=== PATIENT | male | born 1955 | race Caucasian/White ===

== ENCOUNTER 2022-03-30 07:28 | Outpatient (CLI) | payer MEDICARE, BC, SELFPAY ==
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
--- OUTSIDE RECORDS SUMMARY | 2022-03-30 07:30 | XMS_ITS | Encounter Summary ---
:1955 Author Organization [employer] Address [address], [place] [address] Care Team Providers Name Role Phone Unavailable Primary Care Provider Unavailable Reason for Visit Reason Comments CONSULT Bilat Ring Fingers Encounter Details Date Type Department Care Team Description 07/13/2021 [facility] Visit [facility] Luther contracture (Primary Medicine [address] [facility]) [address] [facility] [address] [place], [place] [id number] [phone] Social History Tobacco Use Types Packs/Day Years Used Date Smoking Tobacco: Never Assessed Sex Assigned at Date Recorded Not on file documented as of this encounter Progress Notes Juan Manzano MD - 07/13/2021 9:20 AM CDT Jonathan Alva [id number] 1955 Date of Visit: 07/13/21 Orthopedic Hand and Upper Extremity Consultation Chief Complaint: Bilateral hand contractures History of Present Illness: Jonathan Alva is a 66 y.o. male who presents for evaluation of his hands. He states that over theyears he has had continued development of contractures and cords within his hand. He would like to discuss this today formally. In addition he reports the occasional catching and locking of his index finger. He denies any pain with these problems. His contractures currently do not limit him functionally. Hedenies any particular injury. He has not had any formal treatments in the past for Dupuytren's. Occupation/Hobbies: Patient is retired. He is a nonsmoker. Past Medical/Surgical History: Past medical, social, family history, medications, and allergies were personally reviewed and as perthe intake form. Physical Exam: GENERAL: This is a very pleasant 66 y.o. y/o male in no apparent distress. Mood and affect is normal. Alert and oriented x3. PULMONARY: non-labored breathing, symmetrical chest rise, room oxygen CARDIAC: Distal perfusion to the upper extremities is intact, normal rate MUSCULOSKELETAL: Hand/Palm: Insp/Palp: Right hand there is evidence of pretendinous cords and nodular formation within the righthand involving the ring and middle fingers. Right Middle finger: Insp/Palp: There is a pretendinous cord leading to the middle finger causing a 15 degree flexion contracture at the MCP joint and a 5 degree flexion contracture at the PIP joint. Right Ring finger: Insp/Palp: There is a large pre tenderness cord leading to the ring finger creating a 20 degree MCPcontracture and a 10 degree PIP contracture. There are large nodular formations overlying the P1 phalangeal segment as well as the A1 derrick region. Left Ring Finger: There is a pre-tendinous cord involvement leading to the ring finger with no flexion contractures of the MCP or PIP joint. Skin: Skin warm and dry with no evidence of unusual rashes or suspicious lesions other than the dupuytren's description as noted above Neuro: Neurovascularly intact at the affected site. Psych: Mood and affect is normal. Cognition: Alert and oriented x3. Memory is intact. Assessment: Diagnosis and Associated Orders ICD-10-CM 1. Dupuytren's contracture M72.0 Plan: I informed the patient their dong fascia thickening is due to a genetic disease called Dupuytren'sdisease. We discussed at length both dong fasciotomy and non-surgical treatment options with Xiaflex including the risks and benefits for these treatments. Because their symptoms are not that severe, I would recommend avoiding any treatment at this time. Irecommended continued observation. The patient was instructed to closely monitor their finger motionand contact the office if unable to place their hand flat on a table. The patient understands and is content knowing their diagnosis and plan. He will plan to follow up with me next fall to reexamine his hands and consider surgical intervention if there has been any progression of his contracture. documented in this encounter Plan of Treatment Not on filedocumented as of this encounter Visit Diagnoses Diagnosis Dupuytren's contracture - Primary Contracture of palmar fascia documented in this encounter
--- OUTSIDE RECORDS SUMMARY | 2022-03-30 07:30 | XMS_ITS | Encounter Summary ---
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
--- OUTSIDE RECORDS SUMMARY | 2022-03-30 07:30 | XMS_ITS | Clinical Summary ---
:1955 [facility] Address [address], [place] [address] Care Team Providers Name Role Phone Unavailable Primary Care Provider Unavailable Source Comments You are receiving this document as you are listed as the primary care provider,follow-up provider, or the patient has been referred to you for consultation.This is in compliance with the Medicare and Medicaid EHR Incentive Program,which states Providers who transition their patient to another setting of careor provider of care or refers their patient to another provider of care shouldprovide summarycare record for each transition of care or referral. [employer] Allergies Active Allergy Reactions Severity Noted Date Comments Niacin Other, see comments 07/13/2021 Becomes flush, with heat around the neck . Medications Medication Sig Dispensed Refills Start Date End Date Status ELIQUIS 5 MG tablet Take 5 mg by 0 06/10/2021 Active mouth two times a day. atorvastatin (LIPITOR) Take 80 mg by 0 05/14/2021 Active 80 MG tablet mouth daily. carvedilol (COREG) 3.125 Take 3.125 mg by 0 06/16/19 22 Active MG tablet mouth two times a day. ezetimibe (ZETIA) 10 MG Take 10 mg by 0 05/11/2021 Active tablet mouth daily. omeprazole (PRILOSEC) 20 Take 20 mg by 0 05/17/2021 Active MG capsule mouth daily. lisinopril (ZESTRIL) 30 Take 30 mg by 0 05/08/2021 Active MG tablet mouth daily. tamsulosin (FLOMAX) 0.4 Take 0.8 mg by 0 06/28/2021 Active MG CAPS capsule mouth daily. cetirizine (ZYRTEC) 5 MG Take 5 mg by 0 Active tablet mouth two times a day. Ketotifen Fumarate 1 Drop two times 0 Active (ZADITOR) 0.025 % eye a day. drop solution Active Problems No known active problems Social History Tobacco Use Types Packs/Day Years Used Date Smoking Tobacco: Never Assessed Sex Assigned at Date Recorded Not on file Plan of Treatment Health Maintenance Due Date Last Done Comments Colon Cancer Screening Plan 1955 Due Hep C Screening (Preventive 1955 Services) Medicare Welcome Visit 1955 PSA Screening Discussion 1955 COVID-19 Vaccine (#1) 1955 Cholesterol 1990 Pneumococcal 65+ Yrs (2 - 04/05/2007 04/05/2006 PCV) Influenza (#1) 2021 02/03/2021, 02/17/2020, 02/21/2019, Additional history exists DTaP/Tdap/Td (3 - Tdap) 10/04/2026 10/04/2016, 08/29/2006 Zoster/Shingles Completed 06/19/2019, 02/21/2019 HepA Aged Out No longer eligib le based on patient 's age to complete this topic HepB Aged Out No longer eligib le based on patient 's age to complete this topic Hib Aged Out No longer eligib le based on patient 's age to complete this topic IPV (Polio) Aged Out No longer eligib le based on patient 's age to complete this topic MCV4 Aged Out No longer eligib le based on patient 's age to complete this topic Insurance Payer Benefit Plan / Subscriber ID Effective Dates Phone Addre ss Type Group MEDICARE MEDICARE [id number] 2021-Presen [phone] [facility] MANAGED CARE t 65 BCBS BCBS BC[employer] [place] [id number] 2021-Presen [phone] [address] [address] Medicare BLUE t [address] [place] [address]
[2022-03-30 11:15] LABS: Albumin* 4.1 g/dL (3.3-5.0); Chloride* 107 mmol/L (96-114); Potassium* 4.1 mmol/L (3.6-5.1); Sodium* 143 mmol/L (135-149)
[2022-03-30 11:17] LABS: Cholesterol* 182 mg/dL (90-199)
[2022-03-30 11:18] LABS: Alanine Aminotransferase* 53 U/L (4-50); Alkaline Phosphatase* 68 U/L (40-150); Aspartate Amino Transferase* 35 U/L (12-35); Bilirubin Total* 0.6 mg/dL (0.1-1.5); Blood Urea Nitrogen* 18 mg/dL (7-30); Calcium* 9.1 mg/dL (8.4-10.6); Carbon Dioxide* 30 mmol/L (20-32); Estimated Glomerular Filt Rate 82 ml/min; Glucose* 97 mg/dL (60-115); HDL Cholesterol* 36 mg/dL (>=40); LDL Cholesterol Calculated 127 mg/dL (<100); Total Protein* 6.6 g/dL (6.0-8.3); Triglycerides* 97 mg/dL (40-149)
[2022-03-30 11:45] LABS: PSA Screen* 3.97 ng/mL (0.10-4.00)
== END 2022-03-30 07:29 | disposition home or self-care (01) ==
LOC: NFLDREF 07:29
PROVIDERS: PCP Internal Medicine; Visit Provider Internal Medicine
DX: Z00.00 Encounter for general adult medical examination without abnormal findings (principal); E78.2 Mixed hyperlipidemia; N40.0 Benign prostatic hyperplasia without lower urinary tract symptoms; I10 Essential (primary) hypertension; I48.91 Unspecified atrial fibrillation; Z12.5 Encounter for screening for malignant neoplasm of prostate
CPT/HCPCS: 80053; 80061; 84153

== ENCOUNTER 2022-04-12 08:10 | Outpatient (CLI) | payer MEDICARE, BC, SELFPAY ==
--- NOTE | 2022-04-12 10:40 | W.ANESCHARGE ---
Anesthesia Charges Start Date/Time Anesthesia Start Date: 04/12/22 Anesthesia Start Time: 09:16 Stop Date/Time Anesthesia Stop Date: 04/12/22 Anesthesia Stop Time: 09:44 Summary Emergency: No
--- NOTE | 2022-04-12 10:59 | W.ANESCHARGE ---
Anesthesia Charges Start Date/Time Anesthesia Start Date: 04/12/22 Anesthesia Start Time: 09:16 Stop Date/Time Anesthesia Stop Date: 04/12/22 Anesthesia Stop Time: 09:44 Summary Emergency: No
== END 2022-04-12 08:11 | disposition home or self-care (01) ==
LOC: OP CLINIC 08:13
PROVIDERS: PCP Internal Medicine; Visit Provider Surgery
DX: Z12.11 Encounter for screening for malignant neoplasm of colon (principal); K63.5 Polyp of colon; K62.89 Other specified diseases of anus and rectum; Z85.038 Personal history of other malignant neoplasm of large intestine; Z86.010 Personal history of colon polyps
CPT/HCPCS: 00811; 45385; 88305; J1200; J2704

== ENCOUNTER 2023-01-04 07:54 | Outpatient (CLI) | payer OTHER, SELFPAY | END 2023-01-04 07:55 | disposition home or self-care (01) | LOC: RAD 07:54 | PROVIDERS: PCP Internal Medicine; Visit Provider Internal Medicine Cardiovascular Disease | DX: I34.0 Nonrheumatic mitral (valve) insufficiency (principal); I51.7 Cardiomegaly | CPT/HCPCS: 93306 ==

== ENCOUNTER 2023-03-04 10:32 | Outpatient (REF) | payer OTHER, SELFPAY ==
[2023-03-04 12:43] LABS: Aspartate Amino Transferase* 35 U/L (12-35); Cholesterol* 75 mg/dL (90-199); Creatine Kinase* 241 U/L (54-186); Triglycerides* 52 mg/dL (40-149)
[2023-03-04 12:44] LABS: Alanine Aminotransferase* 36 U/L (4-50); HDL Cholesterol* 35 mg/dL (>=40); LDL Cholesterol Calculated 30 mg/dL (<100)
== END 2023-03-04 10:33 | disposition home or self-care (01) ==
LOC: NPINS 10:32
PROVIDERS: PCP Internal Medicine; Visit Provider Internal Medicine
DX: I10 Essential (primary) hypertension (principal); E78.2 Mixed hyperlipidemia; N52.9 Male erectile dysfunction, unspecified
CPT/HCPCS: 80061; 82550; 84450; 84460

== ENCOUNTER 2023-03-04 10:32 | Outpatient (REF) | payer OTHER, SELFPAY ==
[2023-03-06 12:52] LABS: Testosterone, Adult Male 489 ng/dL (300-720)
== END 2023-03-04 10:33 | disposition home or self-care (01) ==
LOC: NPINS 10:32
PROVIDERS: PCP Internal Medicine; Visit Provider Urology
DX: N52.9 Male erectile dysfunction, unspecified (principal)
CPT/HCPCS: 84403

== ENCOUNTER 2023-06-06 06:15 | Day surgery (SDC) | payer OTHER, SELFPAY ==
[2023-06-06] VITALS (14 sets, daily range): BP systolic 121–140; BP diastolic 66–78; PULSE 54–64; RESP 10–16; TEMP 36.2–37; O2SAT 94–99; BMI 27.1
--- OUTSIDE RECORDS SUMMARY | 2023-06-06 06:17 | XMS_ITS | Clinical Summary ---
Author Name Unknown [facility] Address [address], [place] [address] Care Team Providers Care Station Repairer Name Role Phone Unavailable Primary Care Provider Unavailabl e Source Comments You are receiving this document as you are listed as the primary care provider,follow-up provider, or the patient has been referred to you for consultation.This is in compliance with the Medicare andMedicaid EHR Incentive Program,which states Providers who transition their patient to another setting of careor provider of care or refers their patient to another provider of care shouldprovide summary care record for each transition of care or referral. [facility] Allergies Active Allergy Reactions Criticality Noted Date Comments Niacin Other, see comments 07/13/2021 Becomes flush, with heat around the neck. Medications Medication Sig Dispensed Refills Start Date End Date Status ELIQUIS 5 MG tablet Take 5 mg by mouth two times a day. 06/10/2021 Active atorvastatin (LIPITOR) 80 MG tablet Take 80 mg by mouth daily. 05/14/2021 Active carvedilol (COREG) 3.125 MG tablet Take 3.125 mg by mouth two times a day. 06/16/2021 Active ezetimibe (ZETIA) 10 MG tablet Take 10 mg by mouth daily. 05/11/2021 Active omeprazole (PRILOSEC) 20 MG capsule Take 20 mg by mouth daily. 05/17/2021 Active lisinopril (ZESTRIL) 30 MG tablet Take 30 mg by mouth daily. 05/08/2021 Active tamsulosin (FLOMAX) 0.4 MG CAPS capsule Take 0.8 mg by mouth daily. 06/28/2021 Active cetirizine (ZYRTEC) 5 MG tablet Take 5 mg by mouth two times a day. Active Ketotifen Fumarate (ZADITOR) 0.025 % eye drop solution 1 Drop two times a day. Active Active Problems No known active problems Social History Tobacco Use Types Packs/Day Years Used Date Smoking Tobacco: Never Assessed Sex and Gender Information Value Date Recorded Sex Assigned at Not on file Gender Identity Not on file Sexual Orientation Not on file Plan of Treatment Health Maintenance Due Date Last Done Comments Colon Cancer Screening Plan Due 1955 Hep C Screening (Preventive Services) 1955 Medicare Annual Wellness Visit 1955 PSA Screening Discussion 1955 Cholesterol 1990 Pneumococcal 65+ Yrs (2 - PCV) 02/29/2020 04/05/2006 COVID-19 Vaccine (2 - season) 2022 02/03/2021 Influenza (#1) 2022 02/03/2021, 01/21, 02/21/2019, Additional history exists DTaP/Tdap/Td (3 - Tdap) 10/04/2026 10/04/2016, 08/29 Zoster/Shingles Completed 06/19/2019, 02/21/2019 HepA Aged Out No longer eligi ble based on patient's age to complete this topic HepB Aged Out No longer eligi ble based on patient's age to complete this topic Hib Aged Out No longer eligi ble based on patient's age to complete this topic IPV (Polio) Aged Out No longer eligi ble based on patient's age to complete this topic MCV4 Aged Out No longer eligi ble based on patient's age to complete this topic
--- OUTSIDE RECORDS SUMMARY | 2023-06-06 06:18 | XMS_ITS | Data Portability ---
Author Name Unknown Address [address] [place] [address] Phone [phone] Organization [facility] Address [address] [place] [address] Care Team Providers Care Stevedore Dock Name Role Phone ALHAJI LEVI Primary Care Provider [phone] Assessment No assessment recorded. Plan of Treatment Reminders Order Date Submit Date Provider Last Modified By Organization Details Last Modified Time Details Appointments ESTABLISH ED 10 2023 11:20A Matthew Nicole MD Not available Not available Not available Lab testoster one, total, serum 2022 023 [email or web address] Alhaji Levi MD, [address] [place], [address], 01/24/2023 17:37:21 PSA, serum or plasma 2022 023 [email or web address] 0 [facility], [address], [place], [address], 01/16/2023 16:18:19 PSA, total, serum or plasma 2022 023 [email or web address] [facility], [address], [place], [address], 01/24/2023 17:29:28 urinalysi s, dipstick 2022 023 [facility], [address] [place], [address], 10/10/2022 15:09:00 Referral None recorded. Procedures None recorded. Surgeries None recorded. Imaging None recorded. Medication Orders sildenafi l 100 mg tablet 2022 023 [id number], [address], [place], [address], 01/16/2023 16:43:15 Gemtesa 75 mg tablet 2022 023 [email or web address] 0 Not available 01/16/2023 16:43:12 oxybutyni n chloride ER 5 mg tablet,ex tended release 24 hr 2022 023 [email or web address] 0 [facility], [address] [place] [address], [place], [address], 01/16/2023 16:29:48 Patient TargetsNo targets recorded. Patient InstructionsNo instructions recorded. Reason for Referral None Reported. Results Created Date Observation Date Name Description Value Unit Range Abnormal Flag LastModifiedBy Organization Detail LastModifiedTime 10/11/1910/10/2022 urina lysis , dipst ick Color-Status Yellow Not Available [facility] [address], [place], [address], 10/10/2022 15:08:32 10/11/19 23 10/10/2022 urina lysis , dipst ick Clarity-Stat us Clear Not Available [facility] [address], [place], [address], 10/10/2022 15:08:32 10/11/19 23 10/10/2022 urina lysis , dipst ick Nitrates-Sta tus negati ve Not Available [facility] [address], [place], [address], 10/10/2022 15:08:32 10/11/19 23 10/10/2022 urina lysis , dipst ick Blood-Status Negati ve Not Available [facility] [address], [place], [address], 10/10/2022 15:08:32 10/11/19 23 10/10/2022 urina lysis , dipst ick Leuko-Status Negati ve Not Available [facility] [address], [place], [address], 10/10/2022 15:08:32 01/17/20 23 01/16/2023 PSA, serum or plasm a PSA 3.2ng/ mL 0-4.0 Not Available [facility] [address], [place], [address], 01/16/2023 16:18:05 Result Notes None recorded. Procedures Surgical History Date Name Laterality Status Provider Name and Address Organization Details Recorded Time 3 Bladder Scan completed Trisha perez [facility] 01/16/2023 16:17:59 3 Blood Draw/FARMWORKER/PSA RESULTS completed Trisha perez [facility] 01/16/2023 16:17:55 3 Bladder Scan completed KRISTINA TURPIN [address], [address], [facility] 10/10/2022 15:06:13 2 Colonoscopy completed KRISTINA TURPIN [address], [address], [facility] 10/10/2022 15:07:22 Imaging Results None recorded. Procedure Notes None recorded. Medical Equipment None Reported. Allergies Allergen ID Allergen Name Allergen Category Reaction Reaction Severity Criticality Documentation Date Start Date Code Code System Note Provider Name and Address Organization Details Recorded Time [id number] niacin medicatio n Not available Not available Not available 10/10/2022 7393 RxNorm KRISTINA TURPIN [address] [place] [address], [address], [facility] 3 15:05:11 Medications Name Sig Start Date Stop Date Status Note LastModified by Organization Details LastModified Time atorvastati n 80 mg tablet active Not Available Not Available Not Available amlodipine 5 mg tablet TAKE 1 TABLET BY MOUTH EVERY DAY active Not Available Not Available No t Available sildenafil 100 mg tablet Take 1 tablet as needed by oral route. 2022 active Not Available Not Available Not Avai lable carvedilol 3.125 mg tablet TAKE 1 TABLET BY MOUTH IN THE MORNING AND 1 TABLET IN THE EVENING. TAKE WITH MEALS. active Not Available Not Available No t Available tamsulosin 0.4 mg capsule TAKE 1 CAPSULE BY MOUTH EVERY DAY active Not Available Not Available No t Available hydrochloro thiazide 12.5 mg capsule active Not Available Not Available Not Available lisinopril 30 mg tablet active Not Available Not Available Not Available oxybutynin chloride ER 5 mg tablet,exte nded release 24 hr Take 1 tablet every day by oral route. 01/16 completed Not Available Not Available Not Available omeprazole 20 mg capsule,del ayed release TAKE 1 CAPSULE BY MOUTH EVERY DAY active Not Available Not Available No t Available metoprolol succinate ER 25 mg tablet,exte nded release 24 hr 10/10 completed Not Available Not Available Not Available amoxicillin 875 mg-potassiu m clavulanate 125 mg tablet TAKE 1 TABLET BY MOUTH TWICE A DAY FOR 5 DAYS 10/10 completed Not Available Not Available Not Available ezetimibe 10 mg tablet active Not Available Not Available Not Available Allergy Relief-D (cetirizine ) 5 mg-120 mg tablet,exte nded release TAKE 1 TABLET BY MOUTH TWICE A DAY 10/10 completed Not Available Not Available Not Available Myrbetriq 50 mg tablet,exte nded release TAKE 1 TABLET EVERY DAY 2023 active Not Available Not Available Not Avai lable Eliquis 5 mg tablet TAKE 1 TABLET BY MOUTH TWICE A DAY FOR ATRIAL FIBRILLAT ION. active Not Available Not Available No t Available Repatha SureClick 140 mg/mL subcutaneou s pen injector INJECT 1 ML UNDER SKIN EVERY 2 WEEKS INTO ABDOMEN, THIGH, OR UPPER ARM ROTATE INJECTION SITES. active Not Available Not Available No t Available Gemtesa 75 mg tablet active Not Available Not Available No t Available Vitals Date Recorded Body height Body mass index (BMI) Body weight Provider Name and Address Organization Details Last Updated DateTime 10/10/2022 182.88 cm 27.1 kg/m2 15922.47 g [facility] [address] [place] [address],[address], [phone] [place] [address] 10/10/2022 15:04:54 Date Recorded Body height Body mass index (BMI) Body weight Provider Name and Address Organization Details Last Updated DateTime 01/16/2023 182.88 cm 27.1 kg/m2 80843.47 g Trisha perez [facility] 01/16/2023 16:16:23 Social History Question Answer Notes LastModified by Organizat ion Details LastModified Time Tobacco Smoking Status Never Smoker KRISTINA TURPIN[address], [address] 10/10/2022 15:06:54 What Is Your Level Of Alcohol Consumption? Occasional Information not available 10/10/2022 How Many Times Per Week Do You Consume Alcohol? 1-2 Times Per Week Information not available 10/10/2022 What Is Your Level Of Caffeine Consumption? Moderate Information not available 10/10/2022 What Was The Date Of Your Most Recent Tobacco Screening? 01/16/2023 [email or web address] Information not available 01/16/2023 Do You Use Any Illicit Or Recreational Drugs? No Information not available 10/10/2022 Sex: Male Functional Status None recorded. Mental Status None recorded. Family History Relationship Description Onset Age of this Age Resolved Age Notes Unspecified Relation Family history of Hypertension Unspecified Relation Family history of cardiac disorder Medical History Condition Response GERD/Acid Reflux Y Heart Disease Y High Blood Pressure Y High Cholesterol Y Immunizations Vaccine Type Date Status Provider Name and Address Organization Details Recorded Time Influenza, injectable, MDCK, quadrivalent, preservative 02/17/[address] [facility] 01/16/2023 16:16:27 zoster recombinant 06/19/2019 allison perez [facility] 01/16/2023 16:16:27 zoster recombinant 02/21/2019 allison perez [facility] 01/16/2023 16:16:27 influenza, high-dose, quadrivalent 01/25/2022 completed Trisha Sauceda null, [facility] 01/16/2023 16:16:27 influenza, high-dose, quadrivalent 02/03/2021 completed Trisha Sauceda null, [facility] 01/16/2023 16:16:27 COVID-19, mRNA, LNP-S, PF, 30 mcg/0.3 mL dose 02/03/2021 completed Trisha Sauceda null, [facility] 01/16/2023 16:16:27 Pneumococcal conjugate PCV20, polysaccharide [id number] conjugate, adjuvant, PF 01/25/2022 completed Trisha Sauceda null, [facility] 01/16/2023 16:16:27 pneumococcal polysaccharide PPV23 04/05/2006 completed Trisha Sauceda null, [facility] 01/16/2023 16:16:27 Influenza, seasonal, injectable 01/14/2009 completed Trisha Sauceda null, [facility] 01/16/2023 16:16:27 Influenza, seasonal, injectable 01/15/2012 completed Trisha Sauceda null, [facility] 01/16/2023 16:16:27 Influenza, seasonal, injectable 01/30/2013 completed Trisha Sauceda null, [facility] 01/16/2023 16:16:27 Influenza, seasonal, injectable 02/22/2010 completed Trisha Sauceda null, [facility] 01/16/2023 16:16:27 Influenza, seasonal, injectable 03/01/2005 [facility], [facility] 01/16/2023 16:16:27 Influenza, seasonal, injectable 03/09/2008 completed Trisha Sauceda null, [facility] 01/16/2023 16:16:27 Influenza, seasonal, injectable 03/19/2007 completed Trisha Sauceda null, [facility] 01/16/2023 16:16:27 Influenza, seasonal, injectable 03/31/2003 completed Trisha Sauceda null, [facility] 01/16/2023 16:16:27 Influenza, seasonal, injectable 04/05/2006 completed Trisha perez [facility] 01/16/2023 16:16:27 Influenza, seasonal, injectable, preservative free 02/13/2011 [facility] 16:16:27 Td (adult), 2 Lf tetanus toxoid, preservative free, adsorbed 10/04/2016 [facility]16[facility]23 16:16:27 [facility] 08/29/2006 [facility] 16:16:27 influenza, injectable, quadrivalent, preservative free 01/20/2014 [facility]23 16:16:27 influenza, injectable, quadrivalent, preservative free 02/21/2019 [facility]23 16:16:27 influenza, injectable, quadrivalent, preservative free 03/09/2016 [facility]16/2023 16:16:27 influenza, injectable, quadrivalent, preservative free 03/15/2017 [facility]/16/2023 16:16:28 influenza, injectable, quadrivalent, preservative free 03/19/2018 [facility] 16:16:28 Past Encounters Encounter ID Performer Location Encounter Start Date Encounter Closed Date Diagnosis/Indication [id number] MD KENNEY [facility] [address] [place] [address] 10/10/2022 14:44:45 10/18/2022 10:45:13 Urgent desire to urinate Lower urinary tract symptoms due to benign prostatic hypertrophy [id number] MD KENNEY [facility] [address] [place] [address] 01/16/2023 15:53:16 01/28/2023 14:16:56 Urgent desire to urinate Lower urinary tract symptoms due to benign prostatic hypertrophy Primary erectile dysfunction Health Concerns Section Related Observation LastModified by Organization Detai ls LastModified Time None Recorded Concern Status LastModified by Organization Details LastModified Time None Recorded Advance Directives Directive None Recorded Payers Encounter Date Sequence Insurance Name Policy Number Policy Nixon Covered Member ID Nixon Member ID Guarantor Name 01/16/2023 1 [facility] Jonathan Alva [id number] Jonathan Alva 01/16/2023 2 [place]: [employer] Jonathan Alva [id number] Jonathan Alva 10/10/2022 1 [facility] Jonathan Alva [id number] Jonathan Alva 10/10/2022 2 MEDICARE BMN: [employer] [facility] Jonathan Alva [id number] Jonathan Huff Nida Notes Date Note Type Note Provider Name and Address Organization Details Recorded Time 10/10/2022 text/html HPI Notes: 67 yo male with history of colon cancer (carcinoid), A.fib (on Eliquis), HTN, hyperlipidemia, GERD, CONOR (on CPAP), and BPH - presents with a 6-12 month history of urinary frequency and urgency. He voids every 1-3 hours during the day and 0-3x/night. He notes urgency with occasional leakage - denies hesitancy or dysuria. He is on Flomax 0.8 mg daily. 10/10/22 - He presents for follow-up on urination. He voids every 2-3 hours during the day and 0-4x/night. He notes urgency (occasional leakage) - denies dysuria. - UA - no blood - no LE - PVR = 4 mL PSA - 1.58 (03/31/09) - 1.66 (04/02/15) - 1.72 (03/09/16) - 1.72 (10/22/17) - 2.67 (09/01/20) Christopher Nicole MD [address] [place] [address],[facility] [address], [place], [address], [facility] 10/11/2022 23:54:14 01/16/2023 text/html HPI Notes: 67 yo male with history of colon cancer (carcinoid), A.fib (on Eliquis), HTN, hyperlipidemia, GERD, CONOR (on CPAP), and BPH - presents with a 6-12 month history of urinary frequency and urgency. No Family Hx of prostate cancer. He voids every 1-3 hours during the day and 0-3x/night. He notes urgency with occasional leakage - denies hesitancy or dysuria. He is on Flomax 0.8 mg daily and Oxybutynin ER 5 mg daily. 10/10/22 - He presents for follow-up on urination. He voids every 2-3 hours during the day and 0-4x/night. He notes urgency (occasional leakage) - denies dysuria. 01/16/23 - He presents for follow-up on PSA and urination. He reports no change with Oxybutynin. He voids every 2-3 hours during the day and 3-5x/night. He reports trouble with erections for the past 1-2 years - difficulty obtaining and maintaining erections - no morning erections - + low libido. He also notes Left groin bulge over the past couple weeks. - PVR = 21mL - PSA - 3.2 PSA - 1.58 (03/31/09) - 1.66 (04/02/15) - 1.72 (03/09/16) - 1.72 (10/22/17) - 2.67 (09/01/20) - 3.2 (01/16/23) Christopher Nicole MD [address] [place] [address],[address], [place], [address], [place] MD - [facility] 01/17/2023 21:42:19
--- OUTSIDE RECORDS SUMMARY | 2023-06-06 06:18 | XMS_ITS | Clinical Summary ---
Author Name Unknown Organization [facility] Address [place], [place] [address] Care Team Providers Care Sleeve Setter Lockstitch Name Role Phone Alhaji Cody MD Primary Care Provider Allergies Active Allergy Reactions Criticality Noted Date Comments Niacin Flushing 09/05/2006 intolerance Medications Medication Sig Dispensed Refills Start Date End Date Status Acetaminophen (TYLENOL) 650 mg tabletIndications:P reoperative examination, unspecified Take 1 tablet by mouth every 6 hours if needed. Max acetaminophen dose: 4000mg in 24 hrs. 0 03/25/2012 Active atorvastatin (LIPITOR) 80 mg tabletIndications:M ixed hyperlipidemia TAKE 1 TABLET DAILY 90 tablet 0 05/22/2018 Active ezetimibe (ZETIA) 10 mg tabletIndications:M ixed hyperlipidemia TAKE 1 TABLET DAILY 90 tablet 0 05/22/2018 Active omeprazole (PRILOSEC) 20 mg Delayed-Release capsuleIndications: Chronic GERD Take 1 capsule by mouth once daily if needed. 90 capsule 3 06/08/2019 Active lisinopril (PRINIVIL; ZESTRIL) 30 mg tabletIndications:H ypertensive heart disease, unspecified whether heart failure present Take 1 tablet by mouth once daily. 90 tablet 3 06/25/2019 Active Eliquis 5 mg tablet Take 1 Tablet (5 mg) by mouth 2 times daily. 0 09/08/2020 Active carvediloL (Coreg) 3.125 mg tabletIndications:H ypertensive heart disease, unspecified whether heart failure present Take 1 Tablet (3.125 mg) by mouth in the morning and 1 Tablet (3.125 mg) in the evening. Take with meals. 180 Tablet 0 12/08/2021 Active carvediloL (COREG) 3.125 mg tabletIndications:H ypertensive heart disease, unspecified whether heart failure present Take 1 Tablet (3.125 mg) by mouth two times daily with meals. 180 Tablet 3 03/20/2022 Active tamsulosin (FLOMAX) 0.4 mg capsuleIndications: Benign prostatic hyperplasia with incomplete bladder emptying TAKE 2 CAPSULES ONCE DAILY AFTER A MEAL 180 Capsule 0 03/29/2022 Active CPAPIndications:Obs tructive sleep apnea CPAP machine for home use at pressure:8 cm/H2O, Heated humidifier x 1 every 5 years, Humidifier chamber x 1 every 6 months, Nasal mask with cushion x 1 every 3 months, Nasal mask cushion 1/ month, 1 headgear 1 every 6 month, standard tubing x 1 every 3 months, Filters: Disposable filter x 2 a month, non-disposable filters x1 every 6 months; chinstrap 1 every 6 months Length of Need: 99 months, Frequency of use: Daily 1 Each 11 11/19/2022 Active oxybutynin XL (DITROPAN XL) 5 mg CR tablet 0 10/10/2022 Active amLODIPine (NORVASC) 5 mg tabletIndications:H TN (hypertension) Take 1 Tablet (5 mg) by mouth once daily. 90 Tablet 3 12/06/2022 Active hydroCHLOROthiazide 12.5 mg capsuleIndications: HTN (hypertension) Take 1 Capsule (12.5 mg) by mouth every morning. 0 12/06/2022 Active evolocumab (Repatha SureTyick) 140 mg/mL subcutaneous pen injectorIndications :Hyperlipidemia, unspecified hyperlipidemia type INJECT 1 ML UNDER SKIN EVERY 2 WEEKS INTO ABDOMEN, THIGH, OR UPPER ARM ROTATE INJECTION SITES. 6 mL 3 03/04/2023 Active Active Problems Problem Noted Date Diagnosed Date PAF (paroxysmal atrial fibrillation) 12/07/2020 Hypertensive heart disease 06/19/2019 Chest pain 06/19/2019 Atrial flutter 06/19/2019 Sinus bradycardia 10/04/2016 BPH (benign prostatic hyperplasia) 03/07/2015 Sensorineural hearing loss, bilateral 04/03/2013 HTN (hypertension) 05/27/2012 Personal history of colonic polyps 05/20/2012 Overview: Colonoscopy 04/2012 normal repeat in 5 years Colonoscopy 03/2017 diverticulosis repeat in 5 years CONOR AHI-16 positional 10/17/2009 10/31/2009 GERD (gastroesophageal reflux disease) 0 Mixed hyperlipidemia 08/29/2006 Resolved Problems Problem Noted Date Diagnosed Date Resolved Date Elevated BP 03/25/2012 05/27/2012 Prostatism 06/26/2010 03/07/2015 Things taste abnormal 08/24/20092010 Halitosis 08/24/2009 03/31/2013 Encounters Date Type Department Care Team Description 03/06/2023 Orders Only [facility] at [address] [address] Maria A Lechuga MD 4 scans: (4-Ord) [facility] labs; 03.04.2023 from Last 3 Months Immunizations Name Administration Dates Next Due AMB Influenza, IIV3 (Age >=3 years)(Flu Clinic Only) 01/30/2013,03/09/2008 AMB Influenza, IIV4 PF (=>6 mos Flulaval,Fluzone Fluarix)(Flu Clinic Only) 02/09/2015,01/20/2014 COVID-19 vaccine ([employer] 30mcg/0.3mL) PF, MDV 07/19/2020,06/28/2020 DTaP 08/29/2006 Influenza, IIV3 (Age 6-35 mos) 02/13/2011 Influenza, IIV3 (Age >=3 years) 01/31/20 13,01/15/2012,02/13/2011,2009,01/14/2009,03/09/2008,03/19/2007,1 06/06/2005,02/20/2006,03/01/2005, 003 Influenza, IIV4 03/15/2017,03/09/2016,01/20/2014 Pneumococcal Poly,23-Valent (Pneumovax) 04/05/2006 Td (Age >=7 Years) 10/04/2016 Family History Medical History Relation Name Comments Hyperlipidemia Brother 1 Hypertension Brother 1 Cancer Brother 2 lymphoma-- at 15 Lymphoma Brother 2 Hyperlipidemia Brother 3 [...] Packs/Day Years Used Date Smoking Tobacco: Never Smokeless Tobacco: Never Tobacco Cessation:Counseling Given: Yes Alcohol Use Standard Drinks/Week Comments Yes 2 (1 standard drink = 0.6 oz pur e alcohol) occasional beer PHQ-2 Answer Date Recorded PHQ-2 Score 0 06/21/2018 Social Connections Answer Date Recorded Frequency of Communication with Friends and Fami ly Not on file 04/22/2021 Financial Resource Strain Answer Date R ecorded Difficulty of Paying Living Expenses Not on file 04/22/2021 Difficulty of Paying Living Expenses Not on file 04/22/2021 Sex and Gender Information Value Date Recorded Sex Assigned at Male 04/11/2020 7:56 PM [facility] Gender Identity Male 04/11/2020 7:56 PM 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 Sexual Orientation Straight 04/11/2020 7: 56 PM [facility] Obstetrics History Last Filed Vital Signs Vital Sign Reading Time Taken Comments Blood Pressure 161/81 12/06/2022 7:48 AM CDT Pulse 57 12/06/2022 7:48 AM CDT Temperature 36.2 ??C (97.1 ??F) 08/09/2022 8:38 AM CD T Respiratory Rate 16 08/09/2022 8:38 AM CDT Oxygen Saturation 96% 12/06/2022 7:48 AM CDT Inhaled Oxygen Concentration - - Weight 91.3 kg (201 lb 4.8 oz) 12/06/2022 7:48 A M CDT Height 182.9 cm (6') 12/06/2022 7:48 AM CDT Body Mass Index 27.3 12/06/2022 7:48 AM CDT Plan of Treatment Health Maintenance Due Date Last Done Comments Zoster (shingles) series for age 50+ (1 of 2) 2005 Depression screening for age 12+ 10/22/2018 10/22/2017, 10/22/2017, 08/04/2016, Additional history exists Medicare Wellness for age 65+ 02/29/2020 Pneumococcal series for age 65+ (2 of 2 - PCV) 02/29/2020 04/05/2006 Colonoscopy through age 75 04/11/202204/11, 04/11/2017, 04/11/2017, Additional history exists COVID-19 vaccine series ( season) 2022 02/03/2021, 07/19/2020, 06/28/2020 Influenza for age 65+ 12/21/2022 03/15/2017 , 03/09/2016, 02/09/2015, Additional history exists BMI (ht and wt on same day) for age 18+ 12/07/2023 12/06/2022, 11/19/2022, 11/08/2020, Additional history exists Tetanus booster 10/04/2026 10/04/2016, 07/21 (Completed outside of [facility]) Lipids for age 45-75 03/04/2028 03/04/2023, 10/22/2017, 03/09/2016, Additional history exists Tdap Completed 12/04/2006 (Comp leted outside of [facility]) Hepatitis C screening for ag e 18-79 Completed 03/03/2015 Advance Directives Latest Code Status on File Code Status Date Activated Date Inactivated Comments Full Code 12/07/2020 11:36 AM 12/07/2020 9:08 PM Question Answer Comments Code Status Discussion: Not Discussed Code Status History Code Status Date Activated Date Inactivated Comments Full Code 03/18/2012 11:54 AM 03/19/2012 2:26 AM Full Code 08/30/2006 7:51 PM 08/31/2006 5:09 PM Full Code 08/30/2006 11:10 AM 08/30/2006 7:51 PM Care Teams Sleeve Setter Lockstitch Relationship Specialty Start Date End Date Alhaji Cody MD [address] [place] [address] PCP - General Internal Medicine 06/08/19
[2023-06-06] MEDS: LACTATED RINGERS 1000 ML 1,000 ML 100 ML IV ×2 (06:20→09:30)
[2023-06-06] MEDS: SODIUM CHLORIDE 0.9 % (FLUSH) 10 ML SYRINGE IVF (06:57)
[2023-06-06] MEDS: CEFAZOLIN 2 GM INJ IVP (07:46)
[2023-06-06] MEDS: BUPIVACAINE 0.25% 30 ML INJECTION (08:50)
--- NOTE | 2023-06-06 09:18 | W.ANESCHARGE ---
Anesthesia Charges Start Date/Time Anesthesia Start Date: 06/06/23 Anesthesia Start Time: 07:36 Stop Date/Time Anesthesia Stop Date: 06/06/23 Anesthesia Stop Time: 09:11
--- NOTE | 2023-06-06 09:37 | PM.GSPRC ---
Operative Note Date of procedure: 06/06/23 Pre-op diagnosis: Left inguinal hernia Post-op diagnosis: Same Type of Procedure: Laparoscopic left inguinal hernia repair with mesh Indications: The patient is a 68-year-old male with an increasingly symptomatic left inguinal hernia. After discussion of options, he elected to proceed with repair. Procedure Description: After discussing the risks and benefits of the procedure, the patient signed informed consent.? The operative site was marked and the patient was brought to the operating room and placed on the operating table in supine position.? Care was taken to pad the patient's pressure points.?? The patient was then intubated by anesthesia.?? The operative site was then prepped and draped in the usual sterile fashion.? A time-out was then performed. A curvilinear incision was made below the umbilicus. Dissection was carried down to subcutaneous tissue until the anterior rectus fascia was encountered. This was incised off the midline on the left. The rectus muscle fibers were then retracted exposing the posterior fascia. A port with a dissecting balloon was then introduced into the pre-preperitoneal space. This was inflated under direct vision. The balloon was deflated, removed, and a 10 mm working port was placed. The space was insufflated and a 10 mm 30-degree scope was then advanced into the space. Two 5 mm ports were placed in the midline under direct vision. Dissection began on the left side. At this point, the patient became profoundly bradycardic. The abdomen was desufflated while anesthesia administered medication to improve the patient's heart rate. Once the patient's heart rate and blood pressure were stable, the abdomen was re-insufflated. Please see Anesthesia turning for details. Cecilio's ligament and the pubic bone were exposed medially. Following this, dissection was carried out laterally. An indirect defect was noted. The sac was dissected free from the cord structures using a combination of sharp and blunt dissection. A large cord lipoma was also reduced. Once the sac was completely reduced, a piece of Bard 3DMax mesh for the appropriate side was placed into the abdomen. This was positioned with the marker pointed medially. A Tacker was used to attach the mesh medially at Cecilio's ligament and 1 tack laterally with care to avoid the epigastric vessels and stay above the inguinal ligament. Once this was completed the sac was placed on top of the mesh and the preperitoneal space desufflated under direct vision to ensure the mesh laid flat. 10 mL of 0.5% Marcaine were instilled into the preperitoneal space through a port. The ports were removed. The fascia from the infraumbilical port was closed with 0 Vicryl. The patient had a small 5 mm umbilical hernia defect which was also closed with Vicryl suture. The skin incisions were closed with absorbable subcuticular suture. Sterile dressings were then applied. The scrotum was examined to ensure that both testicles were down. Instrument sponge and needle counts were correct at the end of the case. ? The patient was then woken and transported to the recovery area in stable condition. ? The patient tolerated the procedure well. Findings: Large indirect left inguinal hernia. Anesthesia: GETA Surgeon: Diandra Avalos MD Estimated blood loss (mL): 5 Condition: stable Disposition: PACU
--- NOTE | 2023-06-06 10:03 | W.ANESCHARGE ---
Anesthesia Charges Start Date/Time Anesthesia Start Date: 06/06/23 Anesthesia Start Time: 07:36 Stop Date/Time Anesthesia Stop Date: 06/06/23 Anesthesia Stop Time: 09:11
[2023-06-06] MEDS: ACETAMINOPHEN 325 MG TABLET 650 MG PO (10:36)
== END 2023-06-06 11:33 | disposition home or self-care (01) ==
PROVIDERS: PCP Internal Medicine; Visit Provider Surgery
PROC: (CPT 49650; principal; 2023-06-06 07:30)
DX: K40.90 Unilateral inguinal hernia, without obstruction or gangrene, not specified as recurrent (principal)
CPT/HCPCS: 49650; 00860; A9270; C1781; J0330; J0461; J0665; J0690; J1100; J1170; J2250; J2405; J2704; J3010; J3490; J7120

== ENCOUNTER 2024-01-20 12:01 | Outpatient (REF) | payer OTHER, SELFPAY ==
--- OUTSIDE RECORDS SUMMARY | 2024-01-20 12:05 | XMS_ITS | Clinical Summary ---
Author Organization [facility] Address [address] [address] Care Team Providers Care Reinsurance Analyst Name Role Phone Unavailable Primary Care Provider [...] for each transition of care or referral. [facility] Allerg[facility] Active Allergy Reactions Criticality Noted Date [...] 02/29/2020 04/05/2006 COVID-19 Vaccine (2 - season) 2023 02/03/2021 Influenza (#1) 2023 02/03/2021, 01/21, 02/21/2019, Additional history exists DTaP/Tdap/Td (3 - Tdap) 10/04/2026 10/04/2016, 08/29 RSV (1 - 1-dose 75+ series) 2030 Zoster/Shingles Completed 06/19/2019, 02/21/2019 HepA Aged Out [...]
--- OUTSIDE RECORDS SUMMARY | 2024-01-20 12:05 | XMS_ITS | Clinical Summary ---
Author Organization [facility] Address [place], [place] [address] Care Team Providers Care Grants Manager Name Role Phone Alhaji Cody MD Primary [...] hyperlipidemia TAKE 1 TABLET DAILY 90 tablet 05/22/2018 Active ezetimibe (ZETIA) 10 mg tabletIndications:M ixed hyperlipidemia TAKE 1 TABLET DAILY 90 tablet 05/22/2018 Active omeprazole (PRILOSEC) 20 mg Delayed-Release [...] the evening. Take with meals. 180 Tablet 12/08/2021 Active carvediloL (COREG) 3.125 mg tabletIndications:H ypertensive heart disease, unspecified whether heart failure present Take 1 Tablet (3.125 mg) by mouth two times daily with meals. 180 Tablet 3 03/20/2022 Active tamsulosin (FLOMAX) 0.4 mg capsuleIndications: Benign prostatic hyperplasia with incomplete bladder emptying TAKE 2 CAPSULES ONCE DAILY AFTER A MEAL 180 Capsule 03/29/2022 Active CPAPIndications:Obs tructive sleep apnea CPAP [...] XL (DITROPAN XL) 5 mg CR tablet 10/10/2022 Active hydroCHLOROthiazide 12.5 mg capsuleIndications: HTN (hypertension) Take 1 Capsule (12.5 mg) by mouth every morning. 0 12/06/2022 Active evolocumab (Repatha SureClick) 140 mg/mL subcutaneous pen injectorIndications :Hyperlipidemia, unspecified hyperlipidemia type INJECT 1 ML UNDER SKIN EVERY 2 WEEKS INTO ABDOMEN, THIGH, OR UPPER ARM ROTATE INJECTION SITES. 6 mL 3 03/04/2023 Active amLODIPine (NORVASC) 5 mg tabletIndications:H TN (hypertension) TAKE 1 TABLET BY MOUTH EVERY DAY 90 Tablet 12/12/2023 Active Active Problems Problem Noted Date Diagnosed Date PAF (paroxysmal atrial fibrillation) 12/07/2020 Hypertensive heart disease 06/19/2019 Chest pain 06/19/2019 Atrial flutter 06/19/2019 Sinus bradycardia 10/04/2016 BPH (benign prostatic hyperplasia) 03/07/2015 Sensorineural hearing loss, bilateral 04/03/2013 HTN (hypertension) 05/27/2012 Personal history of colonic polyps 05/20/2012 Overview (04/11/2017): Colonoscopy 04/2012 normal repeat in 5 years Colonoscopy 03/2017 diverticulosis repeat in 5 years [facility] AHI-16 positional 10/17/2009 10/31/2009 GERD (gastroesophageal reflux disease) 0 Mixed hyperlipidemia 08/29/2006 Resolved Problems Problem Noted Date Diagnosed Date Resolved Date Elevated BP 03/25/2012 05/27/2012 Prostatism 06/26/2010 03/07/2015 Things taste abnormal 08/24/20092010 Halitosis 08/24/2009 03/31/2013 Encounters Date Type Department Care Team Description 01/06/2024 10:00 AM CDT Ancillary Procedure [facility] [address] [place] [address] 01/06/2024 Travel 01/03/2024 Transcribe Orders [facility] [address] [facility] [place] [address] Alhaji Cody MD 12/12/2023 Refill [facility] [address] [place] [address] Sheron Rogers MD Refill Request (Amlodipine) 12/02/2023 Orders Only [facility] [place] [address] [place] [address] Sheron Rogers MD <No scans attached> from Last 3 Months Immunizations Name Administration Dates Next Due AMB Influenza, IIV3 (Age >=3 years)(Flu Clinic Only) 01/30/2013,03/09/2008 AMB Influenza, IIV4 PF (=>6 mos Flulaval,Fluzone Fluarix)(Flu Clinic Only) 02/09/2015,01/20/2014 COVID-19 vaccine (Tianji 30mcg/0.3mL) PF MDV 07/19/2020,06/28/2020 DTaP 08/29/2006 Influenza, IIV3 (Age [...] Sex Assigned at Male 04/11/2020 7:56 PM [employer] Gender Identity Male 04/11/2020 7:56 PM [employer] Sexual Orientation Straight 04/11/2020 7: 56 PM [employer] Obstetrics History Last Filed Vital Signs Vital [...] 12/06/2022 7:48 AM CDT Plan of Treatment Upcoming Encounters Date Type Department Care Team (Late st Contact Info) Description 01/21/2024 8:00 AM CDT Office Visit [facility] [address] [place] [address] Sheron Rogers MD [address] [place] [address] 04/30/2024 12:00 PM [employer]IN [employer]ER Office Visit [facility] [address] [place] [address] Arnoldo Douglass MD [address] [place] [address] Health Maintenance Due Date Last Done Comments Zoster (shingles) series for age 50+ (1 of 2) 2005 Depression screening for age 12+ 10/22/2018 10/22/2017, 10/22/2017, 08/04/2016, Additional history exists Medicare Wellness for age 65+ 02/29/2020 Pneumococcal series for age 65+ (2 of 2 - PCV) 02/29/2020 04/05/2006 Colonoscopy through age 75 04/11/202204/11, 04/11/2017, 04/11/2017, Additional history exists BMI (ht and wt on same day) for age 18+ 12/07/2023 12/06/2022, 11/19/2022, 11/08/2020, Additional history exists COVID-19 vaccine series ( season) 2023 02/03/2021, 07/19/2020, 06/28/2020 Influenza for age 65+ 12/22/2023 03/15/2017 , 03/09/2016, 02/09/2015, Additional history exists Tetanus booster 10/04/2026 10/04/2016, 07/21 (Completed outside of [facility]) Lipids for age 45-75 03/04/2028 03/04/2023, 10/22/2017, 03/09/2016, Additional history exists Tdap Completed 12/04/2006 (Comp leted outside of [facility]) Hepatitis C screening for ag e 18-79 Completed 03/03/2015 Procedures Procedure Name Priority Date/Time Associated Diagnosis Comments ECHO TTE COMPLETE WO CONTRAST Routine 01/06/2024 10:33 AM CDT ASHD (arteriosclerotic heart disease) H/O cardiac radiofrequency ablation PAF (paroxysmal atrial fibrillation) (HC) Mitral valve insufficiency, unspecified etiology LIPID PANEL Routine 03/04/2023 Mixed hyperlipidemia COLONOSCOPY 04/11/2017 9:31 AM [employer] ANTI HCV Routine 03/03/2015 7:22 AM [employer] Need for hepatitis C screening test from Last 3 Months or Most Recently Relevant to Health Maintenance Results * ECHO TTE COMPLETE WO CONTRAST (01/06/2024 10:33 AM CDT) AORTIC VALVE MEAN PG 6 mmHg EJECTION FRACTION 67 % LVEDD 4.6 cm EJECTION FRACTION 60 - 65% Anatomical Region Laterality Modality Ultrasound 01/06/2024 10:0 4 AM CDT Narrative 01/06/2024 10:47 AM CDT ECHOCARDIOGRAM RADHA ALVA ? Accession#: ?? [id number] : ?1955 68 years Study Date: ?? 01/06/2024 10:04:49 AM Gender: M ?BP: ? 133/60 mmHg Height: 183.00 cm ?BSA: ?2.13 m? ? ? Weight: 91.00 kg ? Tech: ? MHR ? Referring MD: SHERON ROGERS Site: ? [facility] Reading Location: MOBILE OP Patient Location: Outpatient. Procedure: 2D, Color Doppler and Spectral Doppler. Indication for study: ASHD Cardiac Rhythm: Regular.Study quality: Fair. Final Impressions: 1. Normal LV size, normal wall thickness, normal global systolic function with an estimated EF of 60 - 65%. 2. Right ventricular cavity size is normal, global systolic RV function is normal. 3. The mitral valve is normal, mild mitral regurgitation. Chamber Sizes and Function Normal left ventricular size, normal wall thickness, normal global systolic function with an estimated EF of 60 - 65%. Left atrial size is normal. Right ventricular cavity size is normal, global systolic RV function is normal. The right atrium is normal. Right atrial volume index is 15 ml/m? ? ?. Right atrial area is 15 cm? ? ?. The pulmonary artery is not well visualized. The sinus of Valsalva is normal sized. The ascending aorta is normal sized. Valves, RV Pressures and Diastolic Function The aortic valve is trileaflet and sclerotic, no stenosis and no regurgitation. The mitral valve is normal in structure, mild mitral regurgitation. Indeterminate pattern of LV diastolic filling. The tricuspid valve is normal in structure. Tricuspid regurgitation is trace regurgitation. Unable to assess right ventricular systolic pressure. The pulmonic valve is normal. Trace pulmonary regurgitation. Masses, Effusion, Shunts There is no pericardial effusion. The inferior vena cava is normal sized, respiratory size variation greater than 50%. No left to right shunting was detected by limited color flow Doppler interrogation of the interatrial septum. MEASUREMENTS AND CALCULATIONS 2-D Measurements and LV Function: LVID (d) ?4.6 cm LV FS% (2D) ?? 37 % LVID (s) ?2.9 cm LVOT diameter 2.0 cm IVS (d) ? 0.9 cm HR ?53 bpm LVPW (d) ?1.1 cm LA Vol index ??26 ml/m2 Ao Sinus ?3.3 cm RA Vol index ??15 ml/m2 Ao ST junct 2.5 cm RA area ? 15 cm? ? ? Asc Ao ?3.6 cm RV Max 4C (d) 2.6 cm LA ?4.6 cm Diastology: Mitral ?Tissue Doppler E Peak 0.7 m/s ??e', Septum ? 0.09 m/s A Peak 0.7 m/s ??e', Lateral ?0.08 m/s E/A ?1.0 ?E/e' Average ?? 7.98 DT ? 243 msec Aortic Valve: Vmax ? 1.5 m/s ??RAQUEL (V) ?? 2.45 cm? ? ? VTI ?0.36 m ?? RAQUEL (I) ?? 2.55 cm? ? ? LVOT V max 1.1 m/s ??Max PG ?9 mmHg LVOT VTI ?? 0.28 m ?? Mean PG ?? 6 mmHg SV ? 91 ml ?Dim Index 0.78 SV index ?? 43 ml/m? ? ? CO ?4.8 l/min ?CI ?2.3 l/min/m? ? ? Mitral Valve: MVA ?3.1 cm? ? ? MV P 1/2 70 msec Tricuspid Valve and estimated PA pressures: TAPSE 2.6 cm . This study was interpreted by an [facility] accredited facility. ??Final ?? Procedure Note Boyd Art MD - 01/06/2024 ECHOCARDIOGRAM RADHA ALVA : 1955 68 years Study Date: 01/06/2024 10:04:49 AM Gender: M BP: 133/60 mmHg Height: 183.00 cm BSA: 2.13 m? ? ? Weight: 91.00 kg Tech: R Referring MD: SHERON ROGERS Site: [facility] Reading Location: MOBILE OP Patient Location: Outpatient. Procedure: 2D, Color Doppler and Spectral Doppler. Indication for study: ASHD Cardiac Rhythm: Regular.Study quality: Fair. Final Impressions: 1. Normal LV size, normal wall thickness, normal global systolic functionwith an estimated EF of 60 - 65%. 2. Right ventricular cavity size is normal, global systolic RV functionis normal. 3. The mitral valve is normal, mild mitral regurgitation. Chamber Sizes and Function Normal left ventricular size, normal wall thickness, normal globalsystolic function with an estimated EF of 60 - 65%. Left atrial size isnormal. Right ventricular cavity size is normal, global systolic RVfunction is normal. The right atrium is normal. Right atrial volume indexis 15 ml/m? ? ?. Right atrial area is 15 cm? ? ?. The pulmonary artery is notwell visualized. The sinus of Valsalva is normal sized. The ascendingaorta is normal sized. Valves, RV Pressures and Diastolic Function The aortic valve is trileaflet and sclerotic, no stenosis and noregurgitation. The mitral valve is normal in structure, mild mitralregurgitation. Indeterminate pattern of LV diastolic filling. Thetricuspid valve is normal in structure. Tricuspid regurgitation is traceregurgitation. Unable to assess right ventricular systolic pressure. Thepulmonic valve is normal. Trace pulmonary regurgitation. Masses, Effusion, Shunts There is no pericardial effusion. The inferior vena cava is normal sized,respiratory size variation greater than 50%. No left to right shunting wasdetected by limited color flow Doppler interrogation of the interatrialseptum. MEASUREMENTS AND CALCULATIONS 2-D Measurements and LV Function: LVID (d) 4.6 cm LV FS% (2D) 37 % LVID (s) 2.9 cm LVOT diameter 2.0 cm IVS (d) 0.9 cm HR 53 bpm LVPW (d) 1.1 cm LA Vol index 26 ml/m2 Ao Sinus 3.3 cm RA Vol index 15 ml/m2 Ao ST junct 2.5 cm RA area 15 cm? ? ? Asc Ao 3.6 cm RV Max 4C (d) 2.6 cm LA 4.6 cm Diastology: Mitral Tissue Doppler E Peak 0.7 m/s e', Septum 0.09 m/s A Peak 0.7 m/s e', Lateral 0.08 m/s E/A 1.0 E/e' Average 7.98 DT 243 msec Aortic Valve: Vmax 1.5 m/s RAQUEL (V) 2.45 cm? ? ? VTI 0.36 m RAQUEL (I) 2.55 cm? ? ? LVOT V max 1.1 m/s Max PG 9 mmHg LVOT VTI 0.28 m Mean PG 6 mmHg SV 91 ml Dim Index 0.78 SV index 43 ml/m? ? ? CO 4.8 l/min CI 2.3 l/min/m? ? ? Mitral Valve: MVA 3.1 cm? ? ? MV P 1/2 70 msec Tricuspid Valve and estimated PA pressures: TAPSE 2.6 cm . This study was interpreted by an [facility] accredited facility. Final Sheron Rogers MD ECHO ORD * LIPID PANEL (03/04/2023) Blood BLOOD SPECIMEN / Unknown 03/04/2023 Sheron Rogers MD CHEMISTRY * COLONOSCOPY (04/11/2017 9:31 AM UTILITY GELATIN MAKER) 04/11/2017 9:31 AM UTILITY GELATIN MAKER Narrative Transcriptions Francis Kirk MD - 04/11/2017 10:33 AM CST Patient Name: Radha Alva Procedure Date: 04/11/2017 Gender: Male Date of : 1955 Admit Type: Outpatient Procedure: Colonoscopy Proceduralist: Francis Kirk MD , Pat Luna (Nurse) Indications/Pre-Op Diagnosis: Surveillance: Personal history ofadenomatous polyps on last colonoscopy 5 years ago, Last colonoscopy: April 2012 Medications: Fentanyl 100 micrograms IV, Midazolam 4 mgIV, The level of sedation administered wasmoderate Procedure Description: The patient had risks, benefits and alternatives explained to andgave informed consent. The patient had a stable cardiopulmonary status and judged an adequate candidate for conscious sedation. The [id number] was passed through the anus and advanced tothe cecum, identified by appendiceal orifice and ileocecal valve. The colonoscopy was performed without difficulty. The patient toleratedthe procedure well. The quality of the bowel preparation was good. The ileocecal valve, appendiceal orifice, and rectum were photographed. Complications: No immediate complications. Estimated Blood Loss & Specimen: Estimated blood loss: none. Specimen collected - None Findings: The perianal and digital rectal examinations were normal. A medium post polypectomy scar was found in the rectum. The scartissue was healthy in appearance. There was no evidence of the previouspolyp. The exam was otherwise without abnormality on direct and retroflexion views. Many small-mouthed diverticula were found in the sigmoid colon. Impressions/Post-Op Diagnosis: - Post-polypectomy scar in the rectum. - The examination was otherwise normal on direct and retroflexionviews. - Diverticulosis in the sigmoid colon. - No specimens collected. Recommendation: - Patient has a contact number available for emergencies. The signsand symptoms of potential delayed complications were discussed with the patient. Return to normal activities tomorrow. Written discharge instructions were provided to the patient. - Resume previous diet. - Continue present medications. - Repeat colonoscopy in 5 years for surveillance. Moderate Sedation: Moderate (conscious) sedation was administered by the endoscopy nurse and supervised by the endoscopist. The following parameters were monitored: oxygen saturation, heart rate, respiratory rate, blood pressure, adequacy of pulmonary ventilation and reponse to care. [facility] flow[facility]ets and nursing notes for moderate sedation details. Total physician intraservice time was 16 minutes. Francis Kirk MD 04/11/2017 10:30:17 AM This report has been signed electronically. Note Initiated On: 04/11/2017 9:31 AM Procedure Code(s): --- Professional --- 61259, Colonoscopy, flexible; diagnostic, including collection of specimen(s) bybrushing or washing, when performed (separateprocedure) Diagnosis Code(s): --- Professional --- Z98.890, Other specified postproceduralstates Z86.010, Personal history of colonicpolyps K57.30, Diverticulosis of large intestine without perforation or abscess withoutbleeding CPT copyright 2016 [employer]. All rights reserved. The codes documented in this report are preliminary and upon senior stock plan administrator reviewmay be revised to meet current compliance requirements. Scope In: 10:11:22 AM Scope Withdrawal Time 0 hours 9 minutes 12 seconds Scope Out: 10:25:52 AM Francis Kirk MD PROCEDURE ORD * ANTI HCV (03/03/2015 7:22 AM [employer] G[employer]ATIN MAKER) HEPATITIS C ANTIBODY Non-Reacti ve Non-Reacti ve 03/03/2015 1:31 PM [employer] G[employer]ATIN [employer]KER [facility] [employer] [facility] Blood specimen (specimen) BLOOD SPECIMEN / Unknown Venipuncture / Unknown 03/03/2015 7:22 AM [employer] GELATIN MAKER 03/03/2015 7:22 AM [employer]ILITY GELATIN MAKER Narrative [facility] - 03/03/2015 1:31 PM UTILITY GELATIN [employer]KER Antibodies to HCV not detected; does not exclude the possibility of exposure to HCV. Brennan Quinonez MD SEND OUTS [employer] [facility] [address] [place] [address], from Last 3 Months or Most Recently Relevant to Health Maintenance Advance Directives * Full Code (Latest Code Status on File) Date Activated Date Inactivated Comments 12/07/2020 11:36 AM 12/07/2020 9:08 PM Question Answer Comments Code Status Discussion: Not Discussed * Full Code Date Activated Date Inactivated Comments 03/18/2012 11:54 AM 03/19/2012 2:26 AM * Full Code Date Activated Date Inactivated Comments 08/30/2006 7:51 PM 08/31/2006 5:09 PM * Full Code Date Activated Date Inactivated Comments 08/30/2006 11:10 AM 08/30/2006 7:51 PM Care Teams Grants Manager Relationship Specialty Start Date End Date Alhaji Cody MD [address] [place] [id number] PCP - General Internal Medicine 06/08/19
[2024-01-20 12:26] LABS: Aspartate Amino Transferase* 35 U/L (12-35); Cholesterol* 73 mg/dL (90-199)
[2024-01-20 12:27] LABS: Alanine Aminotransferase* 42 U/L (4-50); Creatine Kinase* 230 U/L (54-186); HDL Cholesterol* 39 mg/dL (>=40); LDL Cholesterol Calculated 22 mg/dL (<100); Triglycerides* 60 mg/dL (40-149)
== END 2024-01-20 12:02 | disposition home or self-care (01) ==
LOC: NPINS 12:01
PROVIDERS: PCP Internal Medicine; Visit Provider Internal Medicine
DX: I25.10 Atherosclerotic heart disease of native coronary artery without angina pectoris (principal)
CPT/HCPCS: 80061; 82550; 84450; 84460

== ENCOUNTER 2024-05-01 07:35 | Outpatient (CLI) | payer OTHER, SELFPAY | END 2024-05-01 07:36 | disposition home or self-care (01) | LOC: NFLDREF 05-09 18:56 | PROVIDERS: PCP Internal Medicine; Referring Provider Internal Medicine; Visit Provider Internal Medicine | DX: I10 Essential (primary) hypertension (principal); E78.2 Mixed hyperlipidemia; Z12.5 Encounter for screening for malignant neoplasm of prostate | CPT/HCPCS: 80053; 80061; G0103 ==

== ENCOUNTER 2024-09-01 07:21 | Outpatient (CLI) | payer OTHER, SELFPAY ==
[2024-09-01 12:19] LABS: PSA Screen* 2.66 ng/mL (0.10-4.00)
== END 2024-09-01 07:22 | disposition home or self-care (01) ==
LOC: NPINS 07:23
PROVIDERS: PCP Internal Medicine; Visit Provider Urology
DX: Z12.5 Encounter for screening for malignant neoplasm of prostate (principal)
CPT/HCPCS: G0103

== ENCOUNTER 2024-09-25 07:30 | Outpatient (RCR) | payer OTHER, SELFPAY ==
--- NOTE | 2024-07-29 10:11 | PT.OPEX ---
PT [facility] Outpatient Eval PT [facility] Outpatient Eval Start: 07/29/24 07:20 Freq: Status: Active Protocol: Document 07/29/24 07:21 CRP (Rec: 07/29/24 10:11 CRP [id number]) E-signed By [facility] Outpatient Evaluation Insurance Information Recert Due Date 10/27/24 Insurance Information/Comments [facility] Diagnosis Back Pain Referring MD Dr Cody Subjective Subjective Pt reports pain across the low back. Pain increases with lying down and any physical activity will increase his pain. Has been an issue for 6 -8 months. Pain can be sharp at times depending on movement . Otherwise dull constant pain. Bending, lifting, carrying will increase pain. When painful bending is really difficult even trying to put socks on. 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 Tylenol helps. Heat pads aggravated his pain. No pain into legs. No numbness/ tingling. Sleep has been difficult secondary to pain. Between needing to get up to go to the bathroom and back pain he does not get much more than 2 hours of sleep. Getting up out of bed can be very difficult secondary to pain. Pain Comments -10/29 Current Work Status Retired Objective Other/Pertinent Objective Posture: active extension pattern Trunk ROM: flex mod dec with active holding of lumbar lordosis - jolt of pain. Ext clara dec with sharp pain, R SB mod dec with sharp pain, L SB min/mod dec with mild pain. BIlat rotation min dec Hip ROM: flex moderate decrease bilat, ER R 20 deg L 35 deg, IR 5 deg bilat MMT: myotomes WNL Abdominal strength 4-/5 with pain Pt prefers to keep back in lumbar lordosis and shows poor tolerance going further into ext or into flattened lumbar spine. Segmental testing: UPAs grade1 causing spasm L3-5 bilat Assessment Assessment/Impression Pt presents to the clinic with significant mechanical dysfunction of the lower lumbar spine. Pt shows poor tolerance to lumbar extension, flexion and R SB. Pts current pain pattern is dominated by a small window of available lumbar ROM without experiencing severe back spasms and sharp pain. Pt presentation is characterized by painful loss of lumbar ROM, active extension pattern and painful hypomobility of lumbar spinal segments. Skilled PT is recommended to decrease pain, improve mobility and daily activity. 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 Pt will be independent with HEP in 8 weeks. 2. Pt will complete daily self care tasks without pain in 10 weeks. 3. Pt will complete 60 min of cargo trimmer with 80% decrease in pain in 12 weeks. Coordination/Communication With Referral Source Treatment Plan/Direct Interventions Joint Mobilization,Manual Therapy,Neuromuscular Re-ed, Self-Care/Home Management, Therapeutic Activities, Therapeutic Exercises Frequency/Duration 1-2x/wk for 12 weeks Patient Will Be Discharged From Therapy Completion of LTG(s),Skills Plateau,Independent w/HEP, Independently Progressing Evaluation Billing Untimed Code Treatment Minutes 40 Complexity Moderate Certification Information Initial Certification Date 07/29/24 Ending Certification Date 10/27/24 Provider Signature Required Yes Provider Signature Shows Agreement With POC & Medical Necessity Physician NPI Number Write NPI# Here Physician Comment/Change : Physician Signature & Date Requested Please Sign/Date Here
== END 2024-09-25 08:14 | disposition home or self-care (01) ==
PROVIDERS: PCP Internal Medicine; Visit Provider Internal Medicine
DX: M54.9 Dorsalgia, unspecified (principal); Z51.89 Encounter for other specified aftercare
CPT/HCPCS: 97110; 97140; 97162

== ENCOUNTER 2024-11-20 09:20 | Outpatient (CLI) | payer OTHER, SELFPAY ==
--- NOTE | 2024-11-20 09:45 | CRLHL7_ITS ---
For Patients: As a result of the Century Cures Act, medical imaging exams and procedure reports are released immediately into your electronic medical record. You may view this report before your referring provider. If you have questions, please contact your health care provider. INDICATION: Low back pain. COMPARISON: 11/26/2019. TECHNIQUE: Sagittal T1, T2, and STIR sequences. Axial T1 and T2 weighted sequences. FINDINGS: Normal vertebral body alignment. Marrow edema in the superior half of the L2 vertebral body surrounding a known Schmorl`s nodes at superior endplate. Findings may represent reactive edema. There is no significant loss of height of the vertebral body. Similar increased edema surrounding the known Schmorl`s nodes at the inferior endplate of L3. No spondylosis. No evidence injury. No suspicious osseous lesions. Normal conus terminates at L1-2. T12-L1 L1-2: No spinal canal or neural foraminal narrowing. L2-3: No spinal canal neural foraminal narrowing. L3-4: Disc degeneration and posterior disc bulge. No narrowing of spinal canal. Mild narrowing of bilateral foramina. L4-5: Disc degeneration posted disc bulge. No narrowing of spinal canal. Mild narrowing of the right neural foramen. No narrowing of the left neural foramen. L5-S1: No spinal canal or neural foraminal narrowing. Degenerative changes of the SI joints. Normal paraspinal soft tissues. IMPRESSION: 1. New marrow edema of the superior half of the L2 vertebral body surrounding a known Schmorl`s node superior endplate. Finding likely represents reactive edema. There is no significant loss of height of the vertebral body. 2. Similar increased edema surrounding the known Schmorl`s node at the inferior endplate of L3 may be also be reactive 3. No fractures. 4. No severe spinal canal or neural foraminal narrowing at all levels Dictated by Presley Dominguez MD @ 11/21/2024 8:41:07 AM (Electronically Signed)
== END 2024-11-20 09:21 | disposition home or self-care (01) ==
LOC: MRI 09:22
PROVIDERS: PCP Internal Medicine; Visit Provider Internal Medicine
DX: M54.50 Low back pain, unspecified (principal); M51.46 Schmorl's nodes, lumbar region
CPT/HCPCS: 72148

== ENCOUNTER 2025-02-27 09:58 | Emergency (ER) | payer OTHER, SELFPAY ==
--- OUTSIDE RECORDS SUMMARY | 2025-02-27 10:01 | XMS_ITS | Clinical Summary ---
Author Organization [facility] Address [address] [place] [address] Care Team Providers Care High Scaler Name Role Phone Alhaji Cody MD Primary Care Provider Allergies Active Allergy Reactions Criticality Noted Date Comments Niacin Flushing 09/05/2006 intolerance Medications Acetaminophen (TYLENOL) 650 mg tabletIndications :Preoperative examination, unspecified Take 1 tablet by mouth every 6 hours if needed. Max acetaminophen dose: 4000mg in 24 hrs. 0 03/25/20 12 Active omeprazole (PRILOSEC) 20 mg Delayed-Release capsuleIndication s:Chronic GERD Take 1 capsule by mouth once daily if needed. 90 capsule 3 0 7:29 PM AUTOMATIC SPREADER OPERATOR 06/08/19 20 Active tamsulosin 0.4 mg capsuleIndication s:Benign prostatic hyperplasia with incomplete bladder emptying Take 2 Capsules (0.8 mg) by mouth once daily after a meal. 180 Capsule 3 04/30/19 25 Active evolocumab (Repatha SureClick) 140 mg/mL subcutaneous pen injectorIndicatio ns:Hyperlipidemia , unspecified hyperlipidemia type Inject 1 mL (140 mg) subcutaneous every 2 weeks. Inject into abdomen, thigh, or upper arm; rotate injection sites. 6 mL 3 06/08/19 25 Active traMADoL (ULTRAM) 50 mg tabletIndications :Lumbar radiculopathy,Lum bar spondylosis,Lumba r facet arthropathy Take 1 Tablet (50 mg) by mouth 3 times daily if needed for Pain. 24 Tablet 12/18/19 25 Active trospium (SANCTURA) 20 mg tabletIndications :OAB (overactive bladder) Take 1 Tablet (20 mg) by mouth two times daily before meals. 30 Tablet 1 02/06/20 25 Active HYDROcodone-aceta minophen (5-325 mg/tablet)Indicat ions:Lumbar radiculopathy,Lum bar spondylosis,Lumba r facet arthropathy Take 1 Tablet by mouth 4 times daily if needed for Pain. Max acetaminophen dose: 4000 mg in 24 hrs. 24 Tablet 02/11/20 25 Active lisinopriL (PRINIVIL; ZESTRIL) 30 mg tabletIndications :Hypertensive heart disease, unspecified whether heart failure present Take 1 Tablet (30 mg) by mouth once daily. 90 Tablet 02/13/20 25 Active amLODIPine (NORVASC) 5 mg tabletIndications :HTN (hypertension) Take 1 Tablet (5 mg) by mouth once daily. 90 Tablet 02/17/20 25 Active atorvastatin (LIPITOR) 80 mg tabletIndications :Mixed hyperlipidemia Take 1 Tablet (80 mg) by mouth once daily. 90 Tablet 02/17/20 25 Active carvediloL (COREG) 3.125 mg tabletIndications :Hypertensive heart disease, unspecified whether heart failure present Take 1 Tablet (3.125 mg) by mouth two times daily with meals. 180 Tablet 02/17/20 25 Active Eliquis 5 mg tabletIndications :PAF (paroxysmal atrial fibrillation) (HC) Take 1 Tablet (5 mg) by mouth two times daily. 180 Tablet 02/17/20 25 Active hydroCHLOROthiazi de 12.5 mg capsuleIndication s:HTN (hypertension) Take 1 Capsule (12.5 mg) by mouth once daily in the morning. 90 Capsule 02/17/20 25 Active Myrbetriq 50 mg tablet Take 1 Tablet by mouth once daily. 025 Discontin ued(Other - add note to specify (E-cancel not sent)) amLODIPine (NORVASC) 5 mg tabletIndications :HTN (hypertension) Take 1 Tablet (5 mg) by mouth once daily. 90 Tablet 3 01/21/20 24 025 Discontin ued(Reord er (E-cancel not sent)) atorvastatin (LIPITOR) 80 mg tabletIndications :Mixed hyperlipidemia Take 1 Tablet (80 mg) by mouth once daily. 90 Tablet 3 01/21/20 24 025 Discontin ued(Reord er (E-cancel not sent)) carvediloL (COREG) 3.125 mg tabletIndications :Hypertensive heart disease, unspecified whether heart failure present Take 1 Tablet (3.125 mg) by mouth two times daily with meals. 180 Tablet 3 01/21/20 24 025 Discontin ued(Reord er (E-cancel not sent)) hydroCHLOROthiazi de 12.5 mg capsuleIndication s:HTN (hypertension) Take 1 Capsule (12.5 mg) by mouth once daily in the morning. 90 Capsule 3 01/21/20 24 025 Discontin ued(Reord er (E-cancel not sent)) Eliquis 5 mg tabletIndications :PAF (paroxysmal atrial fibrillation) (HC) Take 1 Tablet (5 mg) by mouth two times daily. 180 Tablet 3 03/09/20 24 025 Discontin ued(Reord er (E-cancel not sent)) lisinopriL 30 mg tabletIndications :Hypertensive heart disease, unspecified whether heart failure present Take 1 Tablet (30 mg) by mouth once daily. 90 Tablet 1 09/25/19 25 025 Discontin ued(Reord er (E-cancel not sent)) tolterodine (DETROL) 1 mg tabletIndications :Elevated PSA,OAB (overactive bladder) Take 1 Tablet (1 mg) by mouth two times daily. 180 Tablet 2 12/31/19 25 025 Discontin ued(*Med ineffecti ve) Active Problems Problem Noted Date Diagnosed Date [...] Encounters Date Type Department Care Team Description 02/16/2025 Refill [facility] [place] [address] [place] [address] Maria A Lechuga MD Refill Request 02/12/2025 Refill [facility] [place] [address] [place] [address] Maria A Lechuga MD Refill Request 02/08/2025 11:15 AM CDT Orders Only [address] [address] Lab, [place] <No scans attached> 02/08/2025 Travel 02/05/[address] [address] Leti Duke PA Questions (tolterodine (DETROL) 1 mg tablet ) 12/28/[address] [address] Leti Duke PA Refill Request ( TOLTERODINE 1MG) 12/17/2024 Telephone [facility] [address] [place] [address] Alexander Horn MD Medication Management (PHARMACY TRANSFER) 12/16/2024 3:40 PM CDT Office Visit [facility] [address] [place] [address] Alexander Horn MD Consult (Lumbar pain x 6 months /Pain at its worse 10/27-10) 12/16/2024 Travel 11/30/2024 Telephone [facility] [address] [phone] Alexander Horn MD Referral from Last 3 Months Immunizations Immunization Administration Dates Next Due AMB Influenza, IIV3 (Age >=3 years)(Flu Clinic Only) 01/30/2013,03/09/2008 AMB Influenza, IIV4 PF (=>6 mos Flulaval,Fluzone Fluarix)(Flu Clinic Only) 02/09/2015,01/20/2014 COVID-19 vaccine ([employer] NTWicked Loot 30mcg/0.3mL) PF, MDV 07/19/2020,06/28/2020 DTaP 08/29/2006 Influenza, High-dose Quadriv alent Inactivated 03/04/2023,01/25/2022,02/03/2021 Influenza, IIV3 (Age 6-35 mos) 02/13/2011 Influenza, IIV3 (Age >=3 years) 01/31/20 13,01/15/2012,02/13/2011,2009,01/14/2009,03/09/2008,03/19/2007,1 06/06/2005,02/20/2006,03/01/2005, 003 Influenza, IIV4 02/21/2019, 8,03/15/2017,2015,01/20/2014 Influenza, Injectable, Mdck, Quadrivalent, W/preservative 02/17/2020 Pneumococcal Conj 20-valent (Prevnar 20) 01/25/2022 Pneumococcal Poly,23-Valent (Pneumovax) 04/05/2006 Td (Age >=7 Years) 10/04/2016 Td, Preservative Free (age > = 7 Years) 10/04/2016 Zoster (Shingrix-RZV, recombinant) 06/19/2019, Family History Medical History Relation Name Comments [...] Answer Date Recorded PHQ-2 Score 0 06/21/2018 Financial Resource Strain Answer Date R ecorded Difficulty of Paying Living Expenses Not on file 04/22/2021 Difficulty of Paying Living Expenses Not on file 04/22/2021 Sex and Gender Information Value Date Recorded Sex Assigned at Male 04/11/2020 7:56 PM AUTOMATIC SPREADER OPERATOR Legal Sex Male 5:25 AM AUTOMATIC SPREADER OPERATOR Gender Identity Male 04/11/2020 7:56 PM AUTOMATIC SPREADER OPERATOR Sexual Orientation Straight 04/11/2020 7: 56 PM AUTOMATIC SPREADER OPERATOR 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 Not on file Not on file Not on file Obstetrics History Last Filed Vital Signs Vital Sign Reading Time Taken Comments Blood Pressure 143/72 12/16/2024 3:42 PM CDT Pulse 62 12/16/2024 3:42 PM CDT Temperature 36.2 C (97.1 F) 08/09/2022 8:38 AM CDT Respiratory Rate 16 08/09/2022 8:38 AM CDT Oxygen Saturation 98% 12/16/2024 3:42 PM CDT Inhaled Oxygen Concentration - - Weight 96.6 kg (213 lb) 12/16/2024 3:42 PM CDT Height 182.9 cm (6') 12/06/2022 7:48 AM CDT Body Mass Index 28.89 12/06/2022 7:48 AM CDT Plan of Treatment Upcoming Encounters Date Type Department Care Team (Late st Contact Info) Description 04/02/2025 8:30 AM AUTOMATIC SPREADER OPERATOR Office Visit [address] [phone] Leti Duke PA [address] [place] [address] 04/20/2025 8:00 AM AUTOMATIC SPREADER OPERATOR Office Visit [facility] [address] [facility] [place] [address] Maria A Lechuga MD [address] [place] [address] Health Maintenance Due Date Last Done Comments Depression screening for age 12+ 10/22/2018 10/22/2017, 10/22/2017, 08/04/2016, Additional history exists Medicare Wellness for age 65+ 02/29/2020 Colonoscopy through age 75 04/11/202204/11, 04/11/2017, 04/11/2017, Additional history exists BMI (ht and wt on same day) for age 18+ 12/07/2023 12/06/2022, 11/19/2022, 11/08/2020, Additional history exists Influenza Vaccine (#1) 2024 , 02/21/2019, 03/19/2018, Additional history exists Tetanus booster 10/04/2026 10/04/2016, 09/20, 08/07/2006 (Completed outside of [facility]) Lipids for age 45-75 03/04/2028 03/04/2023, 10/22/2017, 03/09/2016, Additional history exists RSV vaccine for adults or (1 - 1-dose 75+ series) 2030 Hepatitis C screening for age 18-79 Completed 03/03/2015 Zoster (shingles) series for age 50+ Completed 06/19/2019, 02/21/2019 Pneumococcal series for age 50+ Completed 01/25/2022, 04/05/2006 Hepatitis B series for 19+ Aged Out N o longer eligible based on patient's age to complete this topic Procedures Procedure Name Priority Date/Time Associated Diagnosis Comments URINALYSIS MICROSCOPIC Routine 02/08/2025 11:29 AM CDT Urinary frequency URINE CULTURE Routine 02/08/2025 11:29 AM CDT Urinary frequency UA W/ SEDIMENT EXAM REFLEXED PER CRITERIA Routine 02/08/2025 11:29 AM CDT Urinary frequency LIPID PANEL Routine 03/04/2023 Mixed hyperlipidemia COLONOSCOPY 04/11/2017 9:31 AM AUTOMATIC SPREADER OPERATOR ANTI HCV Routine 03/03/2015 7:22 AM AUTOMATIC SPREADER OPERATOR Need for hepatitis C screening test from Last 3 Months or Most Recently Relevant to Health Maintenance Results * URINALYSIS MICROSCOPIC (02/08/2025 11:29 AM CDT) RBC 0-2 0-2, None Seen /HPF 02/08/2025 11:42 AM CDT [facility] WBC None Seen 0-2, 3-5, None Seen /HPF 02/08/2025 11:42 AM CDT [facility] BACTERIA Few None Seen, Rare, Few Bacteria/ HPF 02/08/2025 11:42 AM CDT [facility] EPITHELIAL CELLS Few None Seen, Few Epi/HPF 02/08/2025 11:42 AM CDT [facility] Urine URINE SPECIMEN / Unknown Non-Blood / Unknown 02/08/2025 11:29 AM CDT 02/08/2025 11:33 AM CDT us Leti Duke PA URINE Final Res ult [facility] [address] [place] [id number] * URINE CULTURE (02/08/2025 11:29 AM CDT) CULTURE No growth (<1,000 CFU/mL) 02/10/2025 2:22 PM CDT [facility] Urine URINE SPECIMEN / Unknown Non-Blood / Unknown 02/08/2025 11:29 AM CDT 02/08/2025 11:33 AM T us Leti CASTRO MICROBIOLOGY Final Res ult [facility] [address] [place] [address], [place] * (ABNORMAL) UA W/ SEDIMENT EXAM REFLEXED PER CRITERIA (02/08/2025 11:29 AM T) COLOR Yellow Yellow Color 02/08/2025 11:41 AM [facility] CLARITY Clear Clear Clarity 02/08/2025 11:41 AM [facility] SPECIFIC GRAVITY,URINE 1.025 1.010, 1.015, 1.020, 1.025 02/08/2025 11:41 AM [facility] PH,URINE 5.5 6.0, 7.0, 8.0, 5.5, 6.5, 7.5, 8.5 02/08/2025 11:41 AM [facility] UROBILINOGEN, QUALITATIVE Normal Normal EU/dl 02/08/2025 11:41 AM [facility] PROTEIN, URINE 30(A) Negative mg/dL 02/08/2025 11:41 AM [facility] GLUCOSE, URINE Negative Negative mg/dL 02/08/2025 11:41 AM [facility] KETONES,URINE Negative Negative mg/dL 02/08/2025 11:41 AM [facility] BILIRUBIN,URI NE Negative Negative 02/08/2025 11:41 AM [facility] OCCULT BLOOD,URINE Negative Negative 02/08/2025 11:41 AM [facility] NITRITE Negative Negative 02/08/2025 11:41 AM [facility] LEUKOCYTE ESTERASE Negative Negative 02/08/2025 11:41 AM [facility] Urine URINE SPECIMEN / Unknown Non-Blood / Unknown 02/08/2025 11:29 AM CDT 02/08/2025 11:33 AM CDT us Leti Duke PA URINE Final Res ult [facility] [address] [place] [address] * LIPID PANEL (03/04/2023) Blood BLOOD SPECIMEN / Unknown 03/04/2023 us Maria A Lechuga MD CHEMISTRY Final R esult * COLONOSCOPY (04/11/2017 9:31 AM AUTOMATIC SPREADER OPERATOR) 04/11/2017 9:31 AM AUTOMATIC SPREADER OPERATOR Narrative Transcriptions Francis Kirk MD - 04/11/2017 10:33 AM CST Patient Name: Jonathan Alva Procedure Date: 04/11/2017 Gender: Male Date [...] adequate candidate for conscious sedation. The [id number] was passed through the anus and advanced [...] reponse to care. [facility] and nursing [facility] for moderate sedation details. Total physician intraservice time was 16 minutes. Francis Kirk MD 04/11/2017 10:30:17 AM This report has been signed electronically. Note Initiated On: 04/11/2017 9:31 AM Procedure Code(s): --- Professional --- 03419, Colonoscopy, flexible; diagnostic, including collection of specimen(s) bybrushing or washing, when performed (separateprocedure) Diagnosis Code(s): --- Professional --- Z98.890, Other specified postproceduralstates Z86.010, Personal history of colonicpolyps K57.30, Diverticulosis of large intestine without perforation or abscess withoutbleeding CPT copyright 2016 [employer]. All rights reserved. The codes documented in this report are preliminary and upon hydrotel operator reviewmay be revised to meet current compliance requirements. Scope In: 10:11:22 AM Scope Withdrawal Time 0 hours 9 minutes 12 seconds Scope Out: 10:25:52 AM Francis Kirk MD PROCEDURE ORD Edited Re sult - Final * ANTI HCV (03/03/2015 7:22 AM AUTOMATIC SPREADER OPERATOR) HEPATITIS C ANTIBODY Non-Reacti ve Non-Reacti ve 03/03/2015 1:31 PM AUTOMATIC SPREADER OPERATOR [facility] Blood specimen (specimen) BLOOD SPECIMEN / Unknown Venipuncture / Unknown 03/03/2015 7:22 AM AUTOMATIC SPREADER OPERATOR 03/03/2015 7:22 AM AUTOMATIC SPREADER OPERATOR Narrative [facility] - 03/03/2015 1:31 PM AUTOMATIC SPREADER OPERATOR Antibodies to HCV not detected; does not exclude the possibility of exposure to HCV. Brennan Quinonez MD SEND OUTS Final Result [facility] [address] [place] [address], [place] from Last 3 Months or Most Recently Relevant to Health Maintenance Insurance MEDICARE ADVANTAGE MR MEDICARE PART A HB ONLY Member Subscriber Plan / Payer (Ef fective 2020-Present) Name:Josep Alvaony R Member ID:[id number] Relation to Subscriber:Self Name:Jonathan Alva Refugio Subscriber ID:[id number] Payer ID:Not on file Group ID:Not on file Type:Not on file Address: ATTN: CLAIMS [address] * Guarantor: Ellen Alva Account Type Relation to Patient Date of Phone Billing Address Personal/Family Spouse 1955 [phone] [place] [address] MEDICARE ADVANTAGE MR MEDICARE PART A HB ONLY [facility] on file [employer] * Guarantor: [facility] [employer] Account Type Relation to Patient Date of Phone Billing Address [employer] [employer] 2000 ATTN: [employer] #[id number] [place] [id number] Advance Directives * Full Code (Latest Code [...] 11:10 AM 08/30/2006 7:51 PM Care Teams High Scaler Relationship Specialty Start Date End Date Alhaji Cody MD [address] [place] [address] PCP - General Internal Medicine 06/08/19
--- OUTSIDE RECORDS SUMMARY | 2025-02-27 10:01 | XMS_ITS | Data Portability ---
Author Organization [facility], [facility] Address [address] [place] [address] Care Team Providers Care Senior Oracle Applications Developer Name Role Phone ALHAJI LEVI Primary Care Provider [phone] Assessment No assessment recorded. Plan of Treatment Reminders Order Date Submit Date Provider Last Modified By Organization Details Last Modified Time Details Appointments None record ed. Lab PSA, serum or plasma 2023 024 [email or web address] [facility], [address], [place], [address], 4 14:41:34 PSA, total, serum or plasma 2023 024 [email or web address] [facility], [address], [place], [address], 4 09:51:25 testos terone , total, serum 2022 023 [email or web address] Alhaji Levi MD, [address], [place], [address], 3 17:37:21 PSA, serum or plasma 2022 023 [email or web address] [facility], [address], [place], [address], 3 16:18:19 PSA, total, serum or plasma 2022 023 [email or web address] [facility], [address], [place], [address], 17:29:28 urinal ysis, dipsti ck 2022 023 [facility], [address], [place], [address], 15:09:00 Referral None record ed. Procedures None record ed. Surgeries None record ed. Imaging None record ed. Medication Orders silden afil 100 mg tablet 2022 023 [id number], [id number], [place], [address], 16:43:15 Gemtes a 75 mg tablet 2022 023 [email or web address] Not available 16:43:12 oxybut ynin chlori de ER 5 mg tablet ,exten ded releas e 24 hr 2022 023 [email or web address] [facility], [address] [place] [address], [address], 16:29:48 Patient TargetsNo targets recorded. Patient InstructionsNo instructions recorded. Reason for Referral None Reported. Results Created Date Observation Date Name Description Value Unit Range Abnormal Flag Note LastModifiedBy Organization Detail LastModifiedTime 10/11/1910/10/2022 urina lysis , dipst ick Color-Status Yellow Not Available [facility] [address], [place], [address], 10/10/2022 15:08:32 10/11/19 23 10/10/2022 urina lysis , dipst ick Clarity-Stat us Clear Not Available [facility] [address], [place], [address], 10/10/2022 15:08:32 10/11/19 23 10/10/2022 urina lysis , dipst ick Nitrates-Sta tus negati ve Not Available [facility] [address], [place], [address], 10/10/2022 15:08:32 10/11/19 23 10/10/2022 urina lysis , dipst ick Blood-Status Negati ve Not Available [facility] [address], [place], [address], 10/10/2022 15:08:32 10/11/19 23 10/10/2022 urina lysis , dipst ick Leuko-Status Negati ve Not Available [facility] [address], [place], [address], 10/10/2022 15:08:32 01/17/20 23 01/16/2023 PSA, serum or plasm a PSA 3.2ng/ mL 0-4.0 Not Available [facility] [address], [place], [address], 01/16/2023 16:18:05 11/20/19 24 11/20/2023 PSA, serum or plasm a PSA 4.0 ng/ml 0-4.0 NG/mL Not Available [facility] [address], [place], [address], 11/15/2023 16:50:24 Result Notes None recorded. Procedures Surgical History Date Name Laterality Status Provider Name and Address Organization Details Recorded Time 4 [facility] 13:27:00 4 Blood Draw/AGRICULTURAL APPRAISER/PSA RESULTS cancelled Melquiadesergina Mckeon [facility] 2024 13:27:01 4 AGRICULTURAL APPRAISER/blood draw cancelled Trisha Sauceda [facility] 07/16/2023 15:29:59 4 Bladder Scan cancelled Trisah Sauceda [facility] 07/16/2023 15:29:57 4 Bladder Scan completed Isabel Meza [facility] 11/20/2023 14:33:10 4 Blood Draw/AGRICULTURAL APPRAISER/PSA RESULTS completed Isabel Meza [facility] 11/20/2023 14:33:23 3 Bladder Scan completed Trisha Sauceda [facility] 01/16/2023 16:17:59 3 Blood Draw/AGRICULTURAL APPRAISER/PSA RESULTS [facility] 16:17:55 3 Bladder Scan completed KRISTINA FORBESKhari TURPIN [address], [address], [facility] 10/10/2022 15:06:13 2 Colonoscopy completed KRISTINA DESTINEEKhari TURPIN [address], [address], [facility] 10/10/2022 15:07:22 Imaging Results None recorded. Procedure Notes None recorded. Medical Equipment None Reported. Allergies Allergen ID Allergen Name Allergen Category Reaction Reaction Severity Criticality Documentation Date Start Date Code Code System Note Provider Name and Address Organization Details Recorded Time [id number] niacin medicatio n Not available Not available Not available 10/10/2022 7393 RxNorm KRISTINA TURPIN [address] [place] [address], [address], [facility] 3 15:05:11 Medications Name Sig Start Date Stop Date Status Note LastModified by Organization Details LastModified Time Prescriptio n - Prior Authorizati on Request active Not Available Not Available N ot Available atorvastati n 80 mg tablet active Not Available Not Available Not Available amlodipine 5 mg tablet TAKE 1 TABLET BY MOUTH EVERY DAY active Not Available Not Available No t Available sildenafil 100 mg tablet Take 1 tablet as needed by oral route. 2022 active Not Available Not Available Not Avai lable triamcinolo ne acetonide 0.1 % topical cream APPLY TO AFFECTED AREAS ON BACK 2X DAILY FOR 2 WEEKS, THEN 2 WEEK BREAK. REPEAT NEEDED FOR FLARES active Not Available Not Available No t Available carvedilol 3.125 mg tablet TAKE 1 TABLET [...] nded release TAKE 1 TABLET EVERY DAY active Not Available Not Available No t Available Eliquis 5 mg tablet TAKE 1 TABLET BY MOUTH TWICE A DAY FOR ATRIAL FIBRILLAT ION active Not Available Not Available No t Available Repatha SureClick 140 mg/mL subcutaneou s pen injector PLEASE SEE ATTACHED FOR DETAILED DIRECTION S active Not Available Not Available No t Available Gemtesa 75 mg tablet active Not Available Not Available No t Available Vitals Date Recorded Body height Body mass index (BMI) Body weight Provider Name and Address Organization Details Last Updated DateTime 10/10/2022 182.88 cm 27.1 kg/m2 48390.47 g KRISTINA TURPIN, [employer]- [address] [place] [address],[address], [address], [place] - [facility] 10/10/2022 15:04:54 Date Recorded Body height Body mass index (BMI) Body weight Provider Name and Address Organization Details Last Updated DateTime 11/20/2023 182.88 cm 26.4 kg/m2 00480.51 g Isabel Meza [facility] 11/20/2023 14:30:36 Date Recorded Body height Body mass index (BMI) Body weight Provider Name and Address Organization Details Last Updated DateTime 01/16/2023 182.88 cm 27.1 kg/m2 08307.47 g Trisha Sauceda [facility] 01/16/2023 16:16:23 Social History Question Answer Notes LastModified by Organizat ion Details LastModified Time Tobacco Smoking Status Never Smoker KRISTINA TURPIN, [facility]- [address] [place] [address],[facility] [address], [place], [address] 10/10/2022 15:06:54 What Is Your Level Of Caffeine Consumption? Moderate Information not available 10/10/2022 What Was The Date Of Your Most Recent Tobacco Screening? 11/20/2023 [email or web address] Information not available 11/20/2023 Sex: Unknown Functional Status Question Answer Note LastModified by Organizat ion Details LastModified Time How many times per week do you consume alcohol? 1-2 times per week Information not available 10/10/2022 Do you use any illicit or recreational drugs? No Information not available 10/10/2022 What is your level of alcohol consumption? Occasional Information not available 10/10/2022 Mental Status None recorded. Family History Relationship Description Onset Age of this Age Resolved Age Notes LastModified by Organization Details LastModified Time Unspecified Relation Family history of Hypertension Not available 15:06:26 Unspecified Relation Family history of cardiac disorder Not available 2022 15:06:30 Medical History Condition Response High Blood Pressure Y GERD/Acid Reflux Y High Cholesterol Y Heart Disease Y Immunizations Vaccine Type Date Status Note Provider Nam e and Address Organization Details Recorded Time Influenza, high-dose, quadrivalent, PF 3 completed Isabel perez, [facility] 11/20/2023 14:30:43 Influenza, MDCK, quadrivalent, preservative 0 completed Trisha Sauceda null, [facility] 01/16/2023 16:16:27 zoster recombinant 0 completed Trisha Sauceda null, [facility] 01/16/2023 16:16:27 zoster recombinant 9 completed Trisha Sauceda null, [facility] 01/16/2023 16:16:27 Influenza, high-dose, quadrivalent, PF 2 completed Trisha Turneroza null, [facility] 01/16/2023 16:16:27 Influenza, high-dose, quadrivalent, PF 1 completed Trisha Stanleya null, [facility] 01/16/2023 16:16:27 COVID-19, mRNA, LNP-S, PF, 30 mcg/0.3 mL dose 1 completed Trisha Sauceda null, [facility] 01/16/2023 16:16:27 Pneumococcal conjugate PCV20, polysaccharide [id number] conjugate, adjuvant, PF 2 completed Trisha Sauceda null, [facility] 01/16/2023 16:16:27 pneumococcal polysaccharide PPV23 6 [facility] 16:16:27 Influenza, split virus, trivalent, preservative 9 [facility] 16:16:27 Influenza, split virus, trivalent, preservative 2 completed Trisha Turneroza null, [facility] 01/16/2023 16:16:27 Influenza, split virus, trivalent, preservative 3 completed Trisha Sauceda null, [facility] 01/16/2023 16:16:27 Influenza, split virus, trivalent, preservative 0 completed Trisha Turneroza null, [facility] 01/16/2023 16:16:27 Influenza, split virus, trivalent, preservative 5 completed Trisha Turneroza null, [facility] 01/16/2023 16:16:27 Influenza, split virus, trivalent, preservative 8 completed Trisha Sauceda null, [facility] 01/16/2023 16:16:27 Influenza, split virus, trivalent, preservative 7 completed Trisha Sauceda null, [facility] 01/16/2023 16:16:27 Influenza, split virus, trivalent, preservative 3 completed Trisha Sauceda null, [facility] 01/16/2023 16:16:27 Influenza, split virus, trivalent, preservative 6 completed Trisha Sauceda null, [facility] 01/16/2023 16:16:27 Influenza, split virus, trivalent, PF 1 completed Trisha Sauceda null, [facility] 01/16/2023 16:16:27 Td (adult), 2 Lf tetanus toxoid, preservative free, adsorbed 7 completed Trisha Sauceda null, [facility] 01/16/2023 16:16:27 DTaP 7 completed Trisha Sauceda null, [facility] 01/16/2023 16:16:27 Influenza, split virus, quadrivalent, PF 4 completed Trisha Sauceda null, [facility] 01/16/2023 16:16:27 Influenza, split virus, quadrivalent, PF 9 completed Trisha Sauceda null, [facility] 01/16/2023 16:16:27 Influenza, split virus, quadrivalent, PF 6 completed Trisha Sauceda null, [facility] 01/16/2023 16:16:27 Influenza, split virus, quadrivalent, PF 7 completed Trisha Sauceda null, [facility] 01/16/2023 16:16:28 Influenza, split virus, quadrivalent, PF 8 completed Trisha Sauceda null, [facility] 01/16/2023 16:16:28 Past Encounters Encounter ID Performer Location Encounter Start Date Encounter Closed Date Diagnosis/Indication Diagnosis SNOMED-CT Code Diagnosis ICD10 Code Diagnosis IMO Codes Diagnosis Note [id number] [facility] [place] [address] 10/10/2022 14:44:45 10/18/2022 10:45:13 Urgent desire to urinate 77397728 R39.15 1. Urinary urgency- likely due to bladder irritation (overactiv e bladder)- try Oxybutynin ER 5 mg daily- Follow-up in 2 months with Bladder scan and PSA Lower urin lore tract symptoms due to benign prostatic hypertrophy 6458031239 9101 N40.1 2. BPH with slow stream- bladder empties well (PVR = 4 mL)- continue Flomax 0.8 mg daily- Follow-up in 2-3 months with PSA and Bladder scan [id number] [facility] [employer] [facility] [address] [place] [address] 01/16/2023 15:53:16 01/28/2023 14:16:56 Urgent desire to urinate [id number] R39.15 1. Urinary urgency- likely due to bladder irritation (overactiv e bladder)- stop Oxybutynin ER 5 mg daily- try Gemtesa 75 mg daily Lower urin lore tract symptoms due to benign prostatic hypertrophy 9151757989 9101 N40.1 2. BPH with slow stream- bladder empties well (PVR = 21 mL)- continue Flomax 0.8 mg daily- PSA (3.2) - need to monitor- Follow-up in 6 months with PSA and Bladder scan Primary er ectile dysfunction 376571010 N52.9 3. Erectile Dysfunctio n- check Testostero ne- discussed options - oral medication s, MUSE, penile injections , RASHEL, and penile prosthesis - try Viagra 50-100 mg prn- considerin g penile injections - will call if he wants to try it. [id number] Christopher Nicole MD [address] [place] [address] 11/20/2023 14:14:26 11/21/2023 14:40:20 Urgent desire to urinate 11298887 R39.15 1. Urinary urgency- due to bladder irritation (overactiv e bladder)- continue Myrbetriq 50 mg daily Lower urin lore tract symptoms due to benign prostatic hypertrophy 4557606850 9101 N40.1 2. BPH with slow stream- bladder empties well (PVR = 0 mL)- continue Flomax 0.8 mg daily- PSA (4.0) - increased - need to monitor- Follow-up in 3 months with PSA and Bladder scan Primary er ectile dysfunction 147039689 N52.9 H/O Erectile Dysfunctio n- discussed options - oral medication s, MUSE, penile injections , RASHEL, and penile prosthesis - try Viagra 50-100 mg prn- considerin g penile injections - will call if he wants to try it. Health Concerns Section Related Observation LastModified by Organization Detai ls LastModified Time None Recorded Concern Status LastModified by Organization Details LastModified Time None Recorded Advance Directives Directive None Recorded Payers Insurance Date Sequence Insurance Name Policy Number Policy Nixon Covered Member ID Nixon Member ID Guarantor Name 11/21/2023 2 [place]ARE [place]: [employer] Jonathan Alva [id number] Jonathan Alva 2024 1 [employer] [id number] Jonathan Alva [id number] Jonathan Alva 2024 1 [employer] (MEDICARE REPLACEMENT/ADVAN TAGE - PPO) [id number] Jonathan Alva [id number] Jonathan Alva 11/21/2023 1 [facility] Jonathan Alva [id number] Jonathan Alva Notes Date Note Type Note Provider Name and Address Organization Details Recorded Time 10/10/2022 text/html 67 yo male with history of colon cancer (carcinoid), A.fib (on Eliquis), HTN, hyperlipidemia, GERD, CONOR (on CPAP), and BPH - presents with a 6-12 month history of urinary frequency and urgency. He voids every 1-3 hours during the day and 0-3x/night. He notes urgency with occasional leakage - denies hesitancy or dysuria.He is on Flomax 0.8 mg daily. 10/10/22 - He presents for follow-up on urination. He voids every 2-3 hours during the day and 0-4x/night. He notes urgency (occasional leakage) - denies dysuria.- UA - no blood - no LE- PVR = 4 mL PSA - 1.58 (03/31/09)- 1.66 (04/02/15)- 1.72 (03/09/16)- 1.72 (10/22/17)- 2.67 (09/01/20) Christopher Nicole MD [address] [place] [address],[address], [address], [place] - [facility] 10/11/2022 23:54:14 01/16/2023 text/html 67 yo male with history of colon cancer (carcinoid), A.fib (on Eliquis), HTN, hyperlipidemia, GERD, CONOR (on CPAP), and BPH - presents with a 6-12 month history of urinary frequency and urgency. No Family Hx of prostate cancer. He voids every 1-3 hours during the day and 0-3x/night. He notes urgency with occasional leakage - denies hesitancy or dysuria.He is on Flomax 0.8 mg daily and [...] Left groin bulge over the past couple weeks.- PVR = 21mL- PSA - 3.2 PSA - 1.58 (03/31/09)- 1.66 (04/02/15)- 1.72 (03/09/16)- 1.72 (10/22/17)- 2.67 (09/01/20)- 3.2 (01/16/23) Christopher Nicole MD [address] [facility],[address], [place], [address], [facility] - [facility] 01/17/2023 21:42:19 11/20/2023 text/html 68 yo male with history of colon cancer (carcinoid), A.fib (on Eliquis), HTN, hyperlipidemia, GERD, CONOR (on CPAP), and BPH - presents with a 6-12 month history of urinary frequency and urgency. No Family Hx of prostate cancer. He voids every 1-3 hours during the day and 0-3x/night. He notes urgency with occasional leakage - denies hesitancy or dysuria. He tried Oxybutynin ER 5 mg daily (no change) and Gemtesa 75 mg daily (expensive)He is on Flomax 0.8 mg daily and Myrbetriq 50 mg daily. 10/10/22 - He presents for [...] groin bulge over the past couple weeks. 11/20/23-He presents for follow-up on PSA and urination. He voids every 2-3 hours during the day and 0-2x/night.- PVR = 0 mL- PSA - 4.0 ng/ml PSA - 1.58 (03/31/09)- 1.66 (04/02/15)- 1.72 (03/09/16)- 1.72 (10/22/17)- 2.67 (09/01/20)- 3.2 (01/16/23)- 4.0 (11/20/23) Christopher Nicole MD [address] [facility] [address], [place], [address], [facility] 11/20/2023 23:56:19
--- OUTSIDE RECORDS SUMMARY | 2025-02-27 10:01 | XMS_ITS | Clinical Summary ---
Author Organization [facility] Address [address], [place] [address] Care Team Providers Care Web Press Operator Helper Offset Name Role Phone Unavailable Primary Care Provider [...] for each transition of care or referral. [facility] Allerg[facility] Active Allergy Reactions Criticality Noted Date Comments Niacin Other, see comments 07/13/2021 Becomes flush, with heat around the neck. Medications ELIQUIS 5 MG tablet Take 5 mg [...] Recorded Sex Assigned at Not on file Legal Sex Male 4:12 PM CDT Gender Identity Not on file Sexual Orientation Not on file Plan of Treatment Health Maintenance Due Date Last Done Comments Colon Cancer Screening Plan Due 1955 Hep C Screening (Preventive Services) 1955 Medicare Annual Wellness Visit 1955 Cholesterol 1990 Pneumococcal Vaccine 50+ Yrs (2 of 2 - PCV) 04/05/2007 04/05/2006 COVID-19 Vaccine (2 - season) 2024 02/03/2021 Influenza Vaccine (#1) 2024 , 02/17/2020, 02/21/2019, Additional history exists DTaP/Tdap/Td Vaccine (3 - Tdap) 10/04/2026 10/04/2016, 08/29/2006 RSV Vaccine (1 - 1-dose 75+ series) 2030 Zoster/Shingles Vaccine Completed 06/19/2019, 02/21 HepA Vaccine Aged Out No longer eligi ble based on patient's age to complete this topic HepB Vaccine Aged Out No longer eligi ble based on patient's age to complete this topic Hib Vaccine Aged Out No longer eligi ble based on patient's age to complete this topic IPV (Polio) Vaccine Aged Out No longe r eligible based on patient's age to complete this topic MCV4 Vaccine Aged Out No longer eligi ble based on patient's age to complete this topic Meningococcal B Vaccine Aged Out No l onger eligible based on patient's age to complete this topic Insurance MEDICARE MANAGED CARE BC[place]
[2025-02-27 10:09] VITALS: BP 169/94; PULSE 74; RESP 18; TEMP 36.2; O2SAT 95
--- NOTE | 2025-02-27 10:44 | ED_ITS ---
HPI - General Adult General Chief complaint: Laceration/Wound Stated complaint: left hand cut cleaning deer Time Seen by Provider: 02/27/25 10:12 History of Present Illness HPI narrative: Patient is a 69-year-old gentleman in today an opening day of . He is able shoot a Do this morning but as he was getting the deer him a slice the proximal palm on the left hand. He has good neurological and vascular function. Hemostasis has been achieved. He did not have any other injuries is up-to-date on his tetanus shot. The laceration is approximately 3 cm in length. Related Data Home Medications ?Medication ?Instructions ?Recorded ?Confirmed ketotifen fumarate 0.025 % (0.035 0.025 drp ophthalmic (eye) DAILY 03/04/23 02/27/25 %) eye drops PRN trospium 20 mg tablet 20 mg PO BID 02/27/25 Previous Rx's ?Medication ?Instructions ?Recorded atorvastatin 80 mg tablet 80 mg PO QHS Hyperlipidemia #90 05/29/23 tabs carvedilol 3.125 mg tablet (Coreg) 3.125 mg PO BID Hyp ertension #180 05/29/23 tabs evolocumab 140 mg/mL subcutaneous 140 mg subcut Q2W #2 mL 05/29/23 pen injector (Jonny Hi) hydrochlorothiazide 12.5 mg capsule 12.5 mg PO QAM Hyp ertension #90 05/29/23 caps lisinopril 30 mg tablet 30 mg PO QDAY Hypertension # 90 tabs 05/29/23 apixaban 5 mg tablet (Eliquis) 5 mg PO BID Atrial Fibr illation 04/07/24 #60 tabs ezetimibe 10 mg tablet 10 mg PO QDAY Hyperlipidemia #90 05/14/24 tabs tamsulosin 0.4 mg capsule 0.8 mg (2 x 0.4 mg) PO QDAY BPH 05/28/24 #180 caps omeprazole 20 mg capsule,delayed 20 mg PO DAILY #90 ca ps 06/11/24 release Allergies Allergy/AdvReac Type Severity Reaction Status Date / Time niacin AdvReac Mild Flushing Verified 02/27/25 10:09 Review of Systems Status of ROS: Reports: 10 or more systems reviewed and unremarkable except as noted in History and below [facility] Medical History Back pain ?M54.9 - Dorsalgia, unspecified (ICD-10) Erectile dysfunction ?N52.9 - Male erectile dysfunction, unspecified (ICD-10) History of malignant neoplasm of colon ?Z85.038 - Personal history of other malignant neoplasm of large intestine (ICD-10) History of colonic polyps ?Z86.010 - Personal history of colonic polyps (ICD-10) Encounter for screening for COVID-19 ?Z11.52 - Encounter for screening for COVID-19 (ICD-10) Encounter for screening examination for infectious disease ?Z11.9 - Encounter for screening for infectious and parasitic diseases, unspecified (ICD-10) 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 (ICD-10) Erectile dysfunction ?N52.9 - Male erectile dysfunction, unspecified (ICD-10) Hypertension ?I10 - Essential (primary) hypertension (ICD-10) Obstructive sleep apnea ?G47.33 - Obstructive sleep apnea (adult) (pediatric) (ICD-10) GERD (gastroesophageal reflux disease) ?K21.9 - Gastro-esophageal reflux disease without esophagitis (ICD-10) Paroxysmal atrial fibrillation ?I48.0 - Paroxysmal atrial fibrillation (ICD-10) BPH (benign prostatic hyperplasia) ?N40.0 - Benign prostatic hyperplasia without lower urinary tract symptoms (ICD-10) Surgical History History of sinus surgery ?Z98.890 - Other specified postprocedural states (ICD-10) History of shoulder surgery ?Z98.890 - Other specified postprocedural states (ICD-10) History of meniscectomy of right knee ?Z98.890 - Other specified postprocedural states (ICD-10) History of colonoscopy ?Z98.890 - Other specified postprocedural states (ICD-10) History of colectomy ?Z90.49 - Acquired absence of other specified parts of digestive tract (ICD- 10) History of carpal tunnel release ?Z98.890 - Other specified postprocedural states (ICD-10) Family History Paternal Grandmother Colorectal cancer Aunt Colorectal cancer Father Stroke High blood pressure Hyperlipidemia Maternal Grandmother Stroke Mother Dementia Heart failure High blood pressure Hyperlipidemia Family/Other High blood pressure Sister Sjogren's disease Hyperlipidemia Brother Lymphoma Hyperlipidemia Social History Narrative: 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 Non-smoker Does not use illicit drugs Occasional alcohol consumption What is your current living situation?: I presently have a place to live Problems where you live: no known problems In the past 12 months, utilities in danger of being shut off: no In past 12 months, lack of transportation kept you from medical appts, meetings, work, or getting things needed for daily living: no In the past 12 mos, have been you worried that your food would run out before you had money to buy more?: never true In the past 12 mos, the food you bought just didn't last and you didn't have money to buy more?: never true Smoking Status: Never smoker Do you use any of these nicotine containing products: None How often do you have a drink containing alcohol: monthly or less Alcohol type: beer How many standard drinks containing alcohol do you have on a typical day: 1 or 2 How often do you have six or more drinks on one occasion: Never AUDIT-C Alcohol total score: 1 Non-prescribed substance use: denies use How often does anyone, including family, friends and others, physically hurt you : never How often does anyone, including family, friends and others, insult or talk down to you: never How often does anyone, including family, friends and others, threaten you with harm: never How often does anyone, including family, friends and others, scream or curse at you: never Exam Narrative: Exam Narrative: EXAM GENERAL: Patient appears comfortable and well. EYES: No scleral icterus. LYMPH: No supraclavicular or cervical lymphadenopathy. SKIN: Laceration on the palmar aspect of his left hand. EXT: No dependent lower extremity pedal edema. PSYCH: Good eye contact, speech is not pressured. Const: Vital Signs, click to edit/add: Vital Signs - 24 hr 02/27/25 10:09 Temperature 97.2 F L Pulse Rate [Pulse Oximeter] 74 Respiratory Rate 18 Blood Pressure [Ri ght Upper Arm] 169/94 H Pulse Oximetry 95 Oxygen Delivery Me thod Room Air Course Vital Signs Vital signs: Initial Vital Signs Temperature 97.2 F L 02/27/25 10:09 Temperature Source Temporal Artery Scan 02/27/25 10:09 Pulse Rate 74 02/27/25 10:09 Respiratory Rate 18 02/27/25 10:09 Blood Pressure 169/94 H 02/27/25 10:09 Blood Pressure Mean 119 H 02/27/25 10:09 Blood Pressure Position High-Fowlers 02/27/25 10:09 Pulse Oximetry 95 02/27/25 10:09 Oxygen Delivery Method Room Air 02/27/25 10:09 Vital Signs Temperature 97.2 F L 02/27/25 10:09 Pulse Rate 74 02/27/25 10:09 Respiratory Rate 18 02/27/25 10:09 Blood Pressure 169/94 H 02/27/25 10:09 Pulse Oximetry 95 02/27/25 10:09 Oxygen Delivery Method Room Air 02/27/25 10:09 Temperature 97.2 F L 02/27/25 10:09 Pulse Rate 74 02/27/25 10:09 Respiratory Rate 18 02/27/25 10:09 Blood Pressure 169/94 H 02/27/25 10:09 Pulse Oximetry 95 02/27/25 10:09 Oxygen Delivery Method Room Air 02/27/25 10:[address] [facility] Narrative Medical decision making narrative: Patient presents with laceration on his left home. After explaining the risks and benefits I did irrigate the wound after which I provided anesthesia with 2% lidocaine without epinephrine. I then closed the defect with 5 running 3-0 Ethilon sutures. He was instructed on wound care and will follow-up with me in the office on a p.r.n. basis sutures out in 10 days. Discharge Plan Discharge Clinical Impression: Laceration Patient Disposition: Home, Self-Care Condition: Stable Instructions: Laceration (ED) Additional Instructions: Daily dressing changes Keep sutures moist and clean Sutures out in 10 days. Activity Level: No Restrictions Discharge Diet: Regular Prescriptions: No Action ketotifen fumarate 0.025 % (0.035 %) drops 0.025 drp ophthalmic (eye) DAILY PRN atorvastatin 80 mg tablet 80 mg PO QHS Qty: 90 3RF carvedilol [Coreg] 3.125 mg tablet 3.125 mg PO BID Qty: 180 3RF Rx Instructions: must administer with a meal/food lisinopril 30 mg tablet 30 mg PO QDAY Qty: 90 3RF hydrochlorothiazide 12.5 mg capsule 12.5 mg PO QAM Qty: 90 3RF Repatha SureClick 140 mg/mL pen injector 140 mg subcut Q2W Qty: 2 0RF trospium 20 mg tablet 20 mg PO BID Eliquis 5 mg tablet 5 mg PO BID Qty: 60 2RF ezetimibe 10 mg tablet 10 mg PO QDAY Qty: 90 3RF tamsulosin 0.4 mg capsule 0.8 mg PO QDAY Qty: 180 3RF omeprazole 20 mg capsule,delayed release(DR/EC) 20 mg PO DAILY Qty: 90 3RF Rx Instructions: Appt needed prior to next refill. Follow Up/Referrals: Alhaji Cody MD [Primary Care Provider, Internal Medicine] Stand Alone Forms: [facility] Info Instructions
[2025-02-27 10:55] VITALS: BP 135/77; PULSE 59; RESP 18; O2SAT 94
== END 2025-02-27 11:16 | disposition home or self-care (01) ==
PROVIDERS: Emergency Provider Internal Medicine; PCP Internal Medicine
DX: S61.412A Laceration without foreign body of left hand, initial encounter (principal); W26.0XXA Contact with knife, initial encounter; Y93.89 Activity, other specified
CPT/HCPCS: 12002; 99283